=== PATIENT | male | born 1950 | race African-American/Black ===

== ENCOUNTER 2022-01-16 22:15 | Inpatient (IN) | payer OTHER ==
[2022-01-16] MEDS ORDERED: ONDANSETRON 4 MG/2 ML VIAL IVPUSH ONE (22:33)
[2022-01-16 23:13] LABS: BASO % 0.5 % (0-2.0); EOS % 0.3 % (0-4.5); HEMATOCRIT 16.9 % (35.4-49); LYMPH % 11.3 % (8-40); MCH 31.2 pg (25.7-33.7); MCHC 33.9 g/dl (32.0-35.9); MEAN CELL VOLUME 92.1 fl (80-96); MEAN PLT VOLUME 8.7 fl (7.5-11.1); NEUT % 79.9 % (42.8-82.8); PLATELET COUNT 104 10^3/uL (134-434); RBC 1.84 M/mm3 (4.00-5.60); RDW 16.9 % (11.9-15.9); WHITE BLOOD COUNT 3.6 K/mm3 (4.0-10.0)
[2022-01-16 23:18] LABS: INR 1.34 (0.83-1.09); PROTHROMBIN TIME (PATIENT) 15.4 SEC (9.7-13.0)
[2022-01-16 23:20] LABS: ACTIVATED PTT 39.6 SECONDS (25.2-36.5)
[2022-01-16 23:26] LABS: HEMOGLOBIN 5.7 GM/dL (11.7-16.9)
[2022-01-16 23:33] LABS: CHLORIDE 97 mmol/L (98-107); SODIUM 131 mmol/L (136-145)
[2022-01-16 23:36] LABS: ALBUMIN 3.1 g/dl (3.4-5.0); ANION GAP 13 MMOL/L (8-16); CO2 21 mmol/L (21-32); GLUCOSE,RANDOM 174 mg/dL (74-106)
[2022-01-16 23:38] LABS: SGPT/ALT 14 U/L (13-61)
[2022-01-16 23:39] LABS: PHOSPHOROUS 5.7 mg/dL (2.5-4.9); SGOT/AST 22 U/L (15-37)
[2022-01-16 23:40] LABS: BILIRUBIN,TOTAL 0.5 mg/dL (0.2-1); TOT PROT 6.6 g/dl (6.4-8.2)
[2022-01-16 23:41] LABS: ALK PHOS 41 U/L (45-117)
[2022-01-16] MEDS ORDERED: PANTOPRAZOLE SODIUM 80 MG in SODIUM CHLORIDE 100 ML IVPB ONE (23:53)
[2022-01-16 23:56] LABS: BLOOD UREA NITROGEN 154.9 mg/dL (7-18); CREATININE 9.3 mg/dL (0.55-1.3)
[2022-01-17] MEDS ORDERED: PANTOPRAZOLE SODIUM 40 MG VIAL ONE (00:03)
[2022-01-17 00:34] LABS: BASO % 0.4 % (0-2.0); EOS % 0.1 % (0-4.5); HEMATOCRIT 16.5 % (35.4-49); LYMPH % 6.3 % (8-40); MCH 31.1 pg (25.7-33.7); MCHC 33.7 g/dl (32.0-35.9); MEAN CELL VOLUME 92.2 fl (80-96); MEAN PLT VOLUME 8.8 fl (7.5-11.1); MONO % 8.6 % (3.8-10.2); NEUT % 84.6 % (42.8-82.8); PLATELET COUNT 84 10^3/uL (134-434); RBC 1.79 M/mm3 (4.00-5.60); RDW 17.3 % (11.9-15.9); WHITE BLOOD COUNT 3.4 K/mm3 (4.0-10.0)
[2022-01-17 01:01] LABS: HEMOGLOBIN 5.6 GM/dL (11.7-16.9)
[2022-01-17 01:15] LABS: BASO % 0.4 % (0-2.0); EOS % 0.1 % (0-4.5); HEMATOCRIT 17.1 % (35.4-49); LYMPH % 7.5 % (8-40); MCHC 33.7 g/dl (32.0-35.9); MEAN PLT VOLUME 8.9 fl (7.5-11.1); MONO % 9.3 % (3.8-10.2); NEUT % 82.7 % (42.8-82.8); PLATELET COUNT 90 10^3/uL (134-434); RBC 1.86 M/mm3 (4.00-5.60); RDW 16.6 % (11.9-15.9); WHITE BLOOD COUNT 3.5 K/mm3 (4.0-10.0)
[2022-01-17 01:20] LABS: HEMOGLOBIN 5.8 GM/dL (11.7-16.9)
[2022-01-17 06:20] LABS: URINE APPEARANCE CLEAR; URINE BILIRUBIN NEGATIVE (NEGATIVE); URINE COLOR YELLOW; URINE GLUCOSE (UA) NEGATIVE (NEGATIVE); URINE KETONE NEGATIVE (NEGATIVE); URINE LEUK ESTERASE NEGATIVE (NEGATIVE); URINE NITRITE NEGATIVE (NEGATIVE); URINE PROTEIN NEGATIVE (NEGATIVE); URINE UROBILINOGEN 0.2 mg/dL (0.2-1.0)
[2022-01-17 08:56] LABS: BASO % 0.3 % (0-2.0); EOS % 0.1 % (0-4.5); LYMPH % 21.7 % (8-40); MCH 29.6 pg (25.7-33.7); MCHC 33.8 g/dl (32.0-35.9); MEAN CELL VOLUME 87.7 fl (80-96); MEAN PLT VOLUME 8.8 fl (7.5-11.1); MONO % 8.4 % (3.8-10.2); NEUT % 69.5 % (42.8-82.8); PLATELET COUNT 72 10^3/uL (134-434); RBC 2.28 M/mm3 (4.00-5.60); RETICULOCYTES 4.42 % (0.5-1.5); WHITE BLOOD COUNT 3.1 K/mm3 (4.0-10.0)
[2022-01-17 09:03] LABS: HEMOGLOBIN 6.8 GM/dL (11.7-16.9)
[2022-01-17 09:19] LABS: CHLORIDE 100 mmol/L (98-107); SODIUM 136 mmol/L (136-145)
[2022-01-17 09:30] LABS: ALBUMIN 2.9 g/dl (3.4-5.0); ANION GAP 14 MMOL/L (8-16); CO2 21 mmol/L (21-32); GLUCOSE,RANDOM 88 mg/dL (74-106)
[2022-01-17] MEDS: PANTOPRAZOLE SODIUM 80 MG in SODIUM CHLORIDE 100 ML IVPB SCH ×2 (09:30→13:55)
[2022-01-17 09:34] LABS: SGOT/AST 26 U/L (15-37); SGPT/ALT 13 U/L (13-61)
[2022-01-17 09:35] LABS: BILIRUBIN,TOTAL 0.7 mg/dL (0.2-1); TOT PROT 6.2 g/dl (6.4-8.2)
[2022-01-17 09:36] LABS: ALK PHOS 40 U/L (45-117)
[2022-01-17 09:49] LABS: BLOOD UREA NITROGEN 149.1 mg/dL (7-18)
[2022-01-17] MEDS ORDERED: SODIUM CHLORIDE 250 ML IV PRN (10:17)
[2022-01-17 15:36] LABS: HEMATOCRIT 22.5 % (35.4-49); HEMOGLOBIN 7.8 GM/dL (11.7-16.9); MCHC 34.6 g/dl (32.0-35.9); MEAN CELL VOLUME 86.6 fl (80-96); MEAN PLT VOLUME 8.1 fl (7.5-11.1); PLATELET COUNT 75 10^3/uL (134-434); RDW 18.4 % (11.9-15.9); WHITE BLOOD COUNT 3.3 K/mm3 (4.0-10.0)
[2022-01-17] MEDS ORDERED: methaDONE HCL 10 MG TABLET PO ONE (16:11)
[2022-01-17 16:41] LABS: ANISOCYTOSIS 2+; MACROCYTOSIS 2+; TARGET CELLS 1+
[2022-01-17] MEDS ORDERED: methaDONE 40 MG, methaDONE 20 MG PO ONE (16:45)
[2022-01-17 16:54] LABS: TOTAL IRON BINDING CAPACITY 375 ug/dL (250-450)
[2022-01-17] MEDS ORDERED: methaDONE HCL 10 MG TABLET ONE (17:09)
[2022-01-17] MEDS ORDERED: methaDONE HCL 40 MG DISPERSABLE TABLET ONE (17:09)
[2022-01-17 17:11] LABS: IRON SERUM 110 ug/dL (50-175)
[2022-01-17 17:21] LABS: IRON SERUM 78 ug/dL (50-175); TOTAL IRON BINDING CAPACITY 353 ug/dL (250-450)
[2022-01-17] MEDS: PANTOPRAZOLE SODIUM 40 MG VIAL IVPUSH SCH (21:48)
[2022-01-18] MEDS ORDERED: methaDONE HCL 40 MG DISPERSABLE TABLET PO SCH (06:00)
[2022-01-18] MEDS ORDERED: methaDONE 40 MG, methaDONE 20 MG PO ONE (06:30)
[2022-01-18] MEDS ORDERED: methaDONE HCL 40 MG DISPERSABLE TABLET ONE (06:34)
[2022-01-18] MEDS ORDERED: methaDONE HCL 10 MG TABLET ONE (06:34)
[2022-01-18] MEDS: PANTOPRAZOLE SODIUM 40 MG VIAL IVPUSH SCH ×2 (10:05→21:30)
[2022-01-18] MEDS: DOLUTEGRAVIR SODIUM 50 MG TABLET (NON-FORMULARY) PO SCH (13:23)
[2022-01-18 14:25] LABS: HEMOGLOBIN 8.8 GM/dL (11.7-16.9); MCH 29.5 pg (25.7-33.7); MCHC 33.8 g/dl (32.0-35.9); MEAN CELL VOLUME 87.4 fl (80-96); MEAN PLT VOLUME 8.5 fl (7.5-11.1); PLATELET COUNT 94 10^3/uL (134-434); RBC 2.98 M/mm3 (4.00-5.60); RDW 19.2 % (11.9-15.9)
[2022-01-18 14:38] LABS: CHLORIDE 104 mmol/L (98-107); SODIUM 138 mmol/L (136-145)
[2022-01-18 14:40] LABS: ALBUMIN 3.1 g/dl (3.4-5.0); ANION GAP 14 MMOL/L (8-16); CALCIUM 8.4 mg/dL (8.5-10.1); CO2 21 mmol/L (21-32); MAGNESIUM 2.3 mg/dL (1.8-2.4)
[2022-01-18 14:43] LABS: PHOSPHOROUS 7.9 mg/dL (2.5-4.9); SGOT/AST 37 U/L (15-37); SGPT/ALT 15 U/L (13-61)
[2022-01-18 14:45] LABS: TOT PROT 6.7 g/dl (6.4-8.2)
[2022-01-18 14:46] LABS: BILIRUBIN,TOTAL 0.7 mg/dL (0.2-1)
[2022-01-18 14:47] LABS: ALK PHOS 40 U/L (45-117)
[2022-01-18] MEDS ORDERED: IRON SUCROSE INJECTION 200 MG in SODIUM CHLORIDE 90 ML IVPB ONE (15:00)
[2022-01-18 15:02] LABS: CREATININE 9.4 mg/dL (0.55-1.3); GLUCOSE,RANDOM 42 mg/dL (74-106)
[2022-01-18] MEDS ORDERED: DEXTROSE 50%-WATER - 25 GM/50 ML VIAL IVPUSH PRN (15:13)
[2022-01-18] MEDS ORDERED: DEXTROSE 50%-WATER 25 GM/50 ML DISP.SYRIN ONE (15:19)
[2022-01-18] MEDS ORDERED: PROCHLORPERAZINE INJECTION 10 MG/2 ML VIAL IVPB ONE ×2 (18:13→21:45)
[2022-01-18] MEDS ORDERED: ONDANSETRON 4 MG/2 ML VIAL IVPUSH ONE (18:30)
[2022-01-18 23:42] LABS: HEMATOCRIT 25.7 % (35.4-49); HEMOGLOBIN 8.9 GM/dL (11.7-16.9); MCH 29.6 pg (25.7-33.7); MCHC 34.7 g/dl (32.0-35.9); MEAN CELL VOLUME 85.5 fl (80-96); MEAN PLT VOLUME 8.7 fl (7.5-11.1); PLATELET COUNT 100 10^3/uL (134-434); RDW 18.9 % (11.9-15.9); WHITE BLOOD COUNT 3.3 K/mm3 (4.0-10.0)
[2022-01-19] MEDS ORDERED: TRIMETHOBENZAMIDE HCL 300 MG CAPSULE PO ONE ×2 (00:27→00:33)
[2022-01-19] MEDS ORDERED: methaDONE HCL 40 MG DISPERSABLE TABLET ONE (06:43)
[2022-01-19] MEDS ORDERED: methaDONE HCL 10 MG TABLET ONE (06:44)
[2022-01-19] MEDS: methaDONE 40 MG, methaDONE 20 MG PO SCH (06:47)
[2022-01-19 08:41] LABS: HEMATOCRIT 24.8 % (35.4-49); HEMOGLOBIN 8.4 GM/dL (11.7-16.9); MCH 29.7 pg (25.7-33.7); MEAN CELL VOLUME 87.4 fl (80-96); MEAN PLT VOLUME 8.8 fl (7.5-11.1); PLATELET COUNT 95 10^3/uL (134-434); RBC 2.83 M/mm3 (4.00-5.60); RDW 18.9 % (11.9-15.9); WHITE BLOOD COUNT 4.3 K/mm3 (4.0-10.0)
[2022-01-19 09:11] LABS: CALCIUM 8.4 mg/dL (8.5-10.1)
[2022-01-19 09:12] LABS: MAGNESIUM 2.1 mg/dL (1.8-2.4)
[2022-01-19 09:14] LABS: PHOSPHOROUS 4.5 mg/dL (2.5-4.9)
[2022-01-19 09:16] LABS: BILIRUBIN,TOTAL 0.7 mg/dL (0.2-1); BLOOD UREA NITROGEN 88.3 mg/dL (7-18); TOT PROT 6.6 g/dl (6.4-8.2)
[2022-01-19] MEDS: FENOFIBRIC ACID 135 MG CAP PO SCH (09:37)
[2022-01-19] MEDS: DOLUTEGRAVIR SODIUM 50 MG TABLET (NON-FORMULARY) PO SCH (09:37)
[2022-01-19] MEDS: PANTOPRAZOLE SODIUM 40 MG VIAL IVPUSH SCH (09:37)
[2022-01-19] MEDS: ALLOPURINOL 100 MG TABLET (FP) PO SCH (09:37)
[2022-01-19] MEDS: TAMSULOSIN HCL 0.4 MG CAP PO SCH (09:37)
[2022-01-19] MEDS ORDERED: DEXTROSE 5%-0.45% SALINE 1,000 ML IV SCH (11:00)
[2022-01-19] MEDS ORDERED: SODIUM CHLORIDE 250 ML IV PRN (11:02)
[2022-01-19] MEDS: POLYETHYLENE GLYCOL (HEALTHYLAX) 3350 17 GM PACKET PO SCH (21:44)
[2022-01-20] MEDS ORDERED: methaDONE HCL 40 MG DISPERSABLE TABLET ONE (05:12)
[2022-01-20] MEDS ORDERED: methaDONE HCL 10 MG TABLET ONE (05:12)
[2022-01-20] MEDS: methaDONE 40 MG, methaDONE 20 MG PO SCH (05:33)
[2022-01-20 07:54] LABS: BASO % 0.4 % (0-2.0); EOS % 0.8 % (0-4.5); HEMATOCRIT 22.3 % (35.4-49); HEMOGLOBIN 7.5 GM/dL (11.7-16.9); MCHC 33.6 g/dl (32.0-35.9); MEAN CELL VOLUME 89.1 fl (80-96); MEAN PLT VOLUME 8.8 fl (7.5-11.1); MONO % 11.3 % (3.8-10.2); NEUT % 50.5 % (42.8-82.8); PLATELET COUNT 67 10^3/uL (134-434); RDW 19.7 % (11.9-15.9); WHITE BLOOD COUNT 3.2 K/mm3 (4.0-10.0)
[2022-01-20] MEDS ORDERED: EPOETIN ALFA-EPBX 10,000 UNIT/ML VIAL IVPUSH ONE (08:00)
[2022-01-20 08:22] LABS: INR 1.31 (0.83-1.09); PROTHROMBIN TIME (PATIENT) 15.1 SEC (9.7-13.0)
[2022-01-20 08:24] LABS: CALCIUM 7.7 mg/dL (8.5-10.1)
[2022-01-20 08:26] LABS: BLOOD UREA NITROGEN 86.6 mg/dL (7-18)
[2022-01-20 08:28] LABS: CREATININE 6.5 mg/dL (0.55-1.3)
[2022-01-20] MEDS: TAMSULOSIN HCL 0.4 MG CAP PO SCH (10:07)
[2022-01-20] MEDS: ALLOPURINOL 100 MG TABLET (FP) PO SCH (10:07)
[2022-01-20] MEDS: DOLUTEGRAVIR SODIUM 50 MG TABLET (NON-FORMULARY) PO SCH (10:07)
[2022-01-20] MEDS: FENOFIBRIC ACID 135 MG CAP PO SCH (10:07)
[2022-01-20] MEDS: PANTOPRAZOLE 40 MG TABLET PO SCH (10:08)
[2022-01-20] MEDS: POLYETHYLENE GLYCOL (HEALTHYLAX) 3350 17 GM PACKET PO SCH ×2 (10:15→21:34)
[2022-01-20 11:23] LABS: PHOSPHOROUS 5.2 mg/dL (2.5-4.9)
[2022-01-21 08:19] LABS: BASO % 0.5 % (0-2.0); EOS % 0.8 % (0-4.5); HEMATOCRIT 26.7 % (35.4-49); HEMOGLOBIN 9.1 GM/dL (11.7-16.9); LYMPH % 26.1 % (8-40); MCH 30.6 pg (25.7-33.7); MCHC 34.1 g/dl (32.0-35.9); MEAN CELL VOLUME 89.9 fl (80-96); MEAN PLT VOLUME 9.2 fl (7.5-11.1); MONO % 11.1 % (3.8-10.2); NEUT % 61.5 % (42.8-82.8); PLATELET COUNT 59 10^3/uL (134-434); RBC 2.97 M/mm3 (4.00-5.60); RDW 17.7 % (11.9-15.9); WHITE BLOOD COUNT 3.2 K/mm3 (4.0-10.0)
[2022-01-21 08:49] LABS: ALBUMIN 2.6 g/dl (3.4-5.0); CALCIUM 7.6 mg/dL (8.5-10.1); MAGNESIUM 1.7 mg/dL (1.8-2.4)
[2022-01-21 08:50] LABS: CREATININE 4.2 mg/dL (0.55-1.3); PHOSPHOROUS 3.5 mg/dL (2.5-4.9)
[2022-01-21 08:51] LABS: BILIRUBIN,TOTAL 0.9 mg/dL (0.2-1); TOT PROT 5.7 g/dl (6.4-8.2)
[2022-01-21 08:58] LABS: BLOOD UREA NITROGEN 41.4 mg/dL (7-18)
[2022-01-21] MEDS ORDERED: methaDONE HCL 40 MG DISPERSABLE TABLET ONE (09:15)
[2022-01-21] MEDS ORDERED: methaDONE HCL 10 MG TABLET ONE (09:15)
[2022-01-21] MEDS: PANTOPRAZOLE 40 MG TABLET PO SCH (09:28)
[2022-01-21] MEDS: methaDONE 40 MG, methaDONE 20 MG PO SCH (09:29)
[2022-01-21] MEDS: POLYETHYLENE GLYCOL (HEALTHYLAX) 3350 17 GM PACKET PO SCH ×2 (09:29→21:15)
[2022-01-21] MEDS: ALLOPURINOL 100 MG TABLET (FP) PO SCH (09:29)
[2022-01-21] MEDS: TAMSULOSIN HCL 0.4 MG CAP PO SCH (09:29)
[2022-01-21] MEDS: ATOVAQUONE 750 MG/5 ML (UNIT-DOSE PACKAGING) PO SCH (09:30)
[2022-01-21] MEDS: FENOFIBRIC ACID 135 MG CAP PO SCH (09:31)
[2022-01-21] MEDS: DOLUTEGRAVIR SODIUM 50 MG TABLET (NON-FORMULARY) PO SCH (09:32)
[2022-01-21] MEDS ORDERED: methaDONE HCL 40 MG DISPERSABLE TABLET PO SCH (10:00)
[2022-01-21] MEDS ORDERED: MAGNESIUM SULF 50% (8.12 MEQ/2 ML-1 GM VIAL) IVPB ONE (10:45)
[2022-01-22] MEDS: BENZOCAINE/MENTH/CETYLPYRD CL 1 EACH LOZENGE MM PRN ×2 (01:27→10:10)
[2022-01-22] MEDS ORDERED: methaDONE HCL 40 MG DISPERSABLE TABLET ONE (05:53)
[2022-01-22] MEDS ORDERED: methaDONE HCL 10 MG TABLET ONE (05:53)
[2022-01-22] MEDS: methaDONE 40 MG, methaDONE 20 MG PO SCH (06:04)
[2022-01-22 08:18] LABS: BASO % 0.2 % (0-2.0); EOS % 0.7 % (0-4.5); HEMATOCRIT 28.9 % (35.4-49); HEMOGLOBIN 9.7 GM/dL (11.7-16.9); LYMPH % 16.1 % (8-40); MCH 30.2 pg (25.7-33.7); MCHC 33.4 g/dl (32.0-35.9); MEAN CELL VOLUME 90.5 fl (80-96); MEAN PLT VOLUME 9.2 fl (7.5-11.1); MONO % 8.2 % (3.8-10.2); NEUT % 74.8 % (42.8-82.8); PLATELET COUNT 64 10^3/uL (134-434); RDW 17.9 % (11.9-15.9); WHITE BLOOD COUNT 4.1 K/mm3 (4.0-10.0)
[2022-01-22 08:57] LABS: ALBUMIN 2.6 g/dl (3.4-5.0); BLOOD UREA NITROGEN 45.5 mg/dL (7-18); MAGNESIUM 1.8 mg/dL (1.8-2.4)
[2022-01-22 08:59] LABS: CREATININE 5.1 mg/dL (0.55-1.3); PHOSPHOROUS 3.6 mg/dL (2.5-4.9)
[2022-01-22 09:00] LABS: BILIRUBIN,TOTAL 1.5 mg/dL (0.2-1)
[2022-01-22 09:01] LABS: TOT PROT 5.9 g/dl (6.4-8.2)
[2022-01-22] MEDS: POLYETHYLENE GLYCOL (HEALTHYLAX) 3350 17 GM PACKET PO SCH ×2 (09:57→22:46)
[2022-01-22] MEDS: DOLUTEGRAVIR SODIUM 50 MG TABLET (NON-FORMULARY) PO SCH (11:58)
[2022-01-22] MEDS: ATOVAQUONE 750 MG/5 ML (UNIT-DOSE PACKAGING) PO SCH (11:58)
[2022-01-22] MEDS: PANTOPRAZOLE 40 MG TABLET PO SCH (11:58)
[2022-01-22] MEDS: TAMSULOSIN HCL 0.4 MG CAP PO SCH (11:58)
[2022-01-22] MEDS: ALLOPURINOL 100 MG TABLET (FP) PO SCH (11:59)
[2022-01-22] MEDS ORDERED: AMINO ACIDS 4.25%/D5W 1,000 ML IV SCH (12:45)
[2022-01-22] MEDS ORDERED: morphine SULFATE 4 MG/ML VIAL IVPUSH ONE (14:27)
[2022-01-22] MEDS ORDERED: ACETAMINOPHEN 1000 MG/100 ML BAG IVPB ONE (14:35)
[2022-01-22] MEDS ORDERED: PROCHLORPERAZINE INJECTION 10 MG/2 ML VIAL IVPB ONE (15:16)
[2022-01-22] MEDS ORDERED: SODIUM CHLORIDE 250 ML IV PRN (15:24)
[2022-01-22] MEDS ORDERED: DORAVIRINE 100 MG PO SCH (16:00)
[2022-01-22] MEDS ORDERED: ACETAMINOPHEN 1000 MG/100 ML BAG IVPB PRN (19:07)
[2022-01-22] MEDS ORDERED: BENZOCAINE/MENTH/CETYLPYRD CL 1 EACH LOZENGE MM PRN (20:49)
[2022-01-22] MEDS ORDERED: FAT EMULSION/OLIVE/SOY/PHOSPHO 250 ML IV SCH ×2 (22:00)
[2022-01-22] MEDS ORDERED: FAT EMULSION/OLIVE/SOY (CLINOLIPID) 250 ML EMULSION IV SCH (22:00)
[2022-01-23] MEDS ORDERED: methaDONE HCL 10 MG TABLET ONE (05:53)
[2022-01-23] MEDS ORDERED: methaDONE HCL 40 MG DISPERSABLE TABLET ONE (05:53)
[2022-01-23] MEDS ORDERED: methaDONE 40 MG, methaDONE 20 MG PO SCH (06:00)
[2022-01-23] MEDS ORDERED: ATOVAQUONE 750 MG/5 ML (UNIT-DOSE PACKAGING) PO SCH (08:00)
[2022-01-23] MEDS ORDERED: TAMSULOSIN HCL 0.4 MG CAP PO SCH (08:30)
[2022-01-23] MEDS: POLYETHYLENE GLYCOL (HEALTHYLAX) 3350 17 GM PACKET PO SCH (09:41)
[2022-01-23] MEDS: PANTOPRAZOLE SODIUM 40 MG VIAL IVPUSH SCH ×2 (09:43→13:25)
[2022-01-23] MEDS ORDERED: EPOETIN ALFA-EPBX 10,000 UNIT/ML VIAL IVPUSH ONE (10:00)
[2022-01-23] MEDS ORDERED: ALLOPURINOL 100 MG TABLET (FP) PO SCH (10:00)
[2022-01-23] MEDS ORDERED: DOLUTEGRAVIR SODIUM 50 MG TABLET (NON-FORMULARY) PO SCH (10:00)
[2022-01-23] MEDS ORDERED: DORAVIRINE 100 MG PO SCH (10:00)
[2022-01-23] MEDS ORDERED: MAGNESIUM SULF 50% (8.12 MEQ/2 ML-1 GM VIAL) IVPB ONE (10:17)
[2022-01-23 10:51] LABS: HEMATOCRIT 26.7 % (35.4-49); HEMOGLOBIN 9.1 GM/dL (11.7-16.9); MCH 30.7 pg (25.7-33.7); MCHC 34.1 g/dl (32.0-35.9); MEAN PLT VOLUME 8.2 fl (7.5-11.1); PLATELET COUNT 68 10^3/uL (134-434); RBC 2.96 M/mm3 (4.00-5.60); RDW 17.5 % (11.9-15.9); WHITE BLOOD COUNT 3.8 K/mm3 (4.0-10.0)
[2022-01-23 11:13] LABS: BLOOD UREA NITROGEN 60.7 mg/dL (7-18); CALCIUM 7.6 mg/dL (8.5-10.1)
[2022-01-23 11:14] LABS: ALBUMIN 2.4 g/dl (3.4-5.0)
[2022-01-23 11:16] LABS: PHOSPHOROUS 4.1 mg/dL (2.5-4.9)
[2022-01-23 11:17] LABS: CREATININE 5.9 mg/dL (0.55-1.3)
[2022-01-23 11:18] LABS: BILIRUBIN,TOTAL 0.8 mg/dL (0.2-1); TOT PROT 5.6 g/dl (6.4-8.2)
[2022-01-23] MEDS: AMINO ACIDS 4.25%/D5W 1,000 ML IV SCH ×2 (13:41→18:10)
[2022-01-23 21:24] VITALS: BMI 15.0
[2022-01-23 21:49] VITALS: BP 125/82; PULSE 69; TEMP 98.2
[2022-01-24 00:07] LABS: SARS-CoV-2 NAA Not Detected (Not Detected)
== END 2022-01-23 23:17 | disposition short-term general hospital (02) | DRG 682 ==
LOC: JER 22:15 → JERBED 01-17 02:09 → J4W 01-17 06:41 → J5S 01-22 20:47
PROVIDERS: ADMIT Hospitalist; ATTEND Internal Medicine
PROC: 30233N1 Transfusion of Nonautologous Red Blood Cells into Peripheral Vein, Percutaneous Approach (ICD-10-PCS; 2022-01-17)
PROC: 05HN33Z Insertion of Infusion Device into Left Internal Jugular Vein, Percutaneous Approach (ICD-10-PCS; principal; 2022-01-19)
PROC: B544ZZA Ultrasonography of Left Jugular Veins, Guidance (ICD-10-PCS; 2022-01-19)
PROC: 5A1D70Z Performance of Urinary Filtration, Intermittent, Less than 6 Hours Per Day (ICD-10-PCS; 2022-01-20)
PROC: 0DJ08ZZ Inspection of Upper Intestinal Tract, Via Natural or Artificial Opening Endoscopic (ICD-10-PCS; 2022-01-21)
PROC: 5A1D70Z Performance of Urinary Filtration, Intermittent, Less than 6 Hours Per Day (ICD-10-PCS; 2022-01-21)
PROC: 5A1D70Z Performance of Urinary Filtration, Intermittent, Less than 6 Hours Per Day (ICD-10-PCS; 2022-01-23)
DX: I12.0 Hypertensive chronic kidney disease with stage 5 chronic kidney disease or end stage renal disease (principal); N18.6 End stage renal disease; N17.9 Acute kidney failure, unspecified; D61.818 Other pancytopenia; K92.2 Gastrointestinal hemorrhage, unspecified; F11.20 Opioid dependence, uncomplicated; R64 Cachexia; Z68.1 Body mass index [BMI] 19.9 or less, adult; E87.1 Hypo-osmolality and hyponatremia; E78.5 Hyperlipidemia, unspecified; D64.9 Anemia, unspecified; Z21 Asymptomatic human immunodeficiency virus [HIV] infection status; D50.9 Iron deficiency anemia, unspecified; N40.0 Benign prostatic hyperplasia without lower urinary tract symptoms; F19.10 Other psychoactive substance abuse, uncomplicated; I44.69 Other fascicular block; D69.6 Thrombocytopenia, unspecified; R13.19 Other dysphagia; R19.5 Other fecal abnormalities; B19.20 Unspecified viral hepatitis C without hepatic coma; M10.9 Gout, unspecified; K22.2 Esophageal obstruction; E83.39 Other disorders of phosphorus metabolism; Z85.89 Personal history of malignant neoplasm of other organs and systems; Z96.643 Presence of artificial hip joint, bilateral; Z99.2 Dependence on renal dialysis
CPT/HCPCS: 36415; 36430; 71045-TC-FY; 74018-TC-FY; 74220-TC-FY; 76700-TC; 80048; 80053; 81003; 82105; 82272; 82607; 82728; 82746; 82962; 83010; 83036; 83540; 83550; 83605; 83615; 83735; 84100; 84443; 84484; 85025; 85027; 85045; 85610; 85730; 86359; 86360; 86704; 86803; 86850; 86880; 86900; 86901; 86922; 87340; 87517; 87522; 87804; 93005; 93010; 99285-25; C9803-CS; J1756; P9058; Q5106; U0003; U0005

== ENCOUNTER 2022-05-20 16:03 | Observation (INO) | payer OTHER ==
[2022-05-20 16:34] VITALS: TEMP 97.7; BMI 23.4
[2022-05-20 17:48] LABS: BASO % 0.4 % (0-2.0); EOS % 0.3 % (0-4.5); HEMATOCRIT 23.9 % (35.4-49); HEMOGLOBIN 8.1 GM/dL (11.7-16.9); LYMPH % 15.2 % (8-40); MCH 32.3 pg (25.7-33.7); MEAN PLT VOLUME 8.7 fl (7.5-11.1); MONO % 5.7 % (3.8-10.2); NEUT % 78.4 % (42.8-82.8); PLATELET COUNT 123 10^3/uL (134-434); RBC 2.51 M/mm3 (4.00-5.60); RDW 17.2 % (11.9-15.9); WHITE BLOOD COUNT 3.7 K/mm3 (4.0-10.0)
[2022-05-20 18:11] LABS: ALBUMIN 2.5 g/dl (3.4-5.0); BLOOD UREA NITROGEN 12.7 mg/dL (7-18); CALCIUM 7.9 mg/dL (8.5-10.1)
[2022-05-20 18:13] LABS: PHOSPHOROUS 2.4 mg/dL (2.5-4.9)
[2022-05-20 18:16] LABS: BILIRUBIN,TOTAL 0.6 mg/dL (0.2-1); TOT PROT 7.1 g/dl (6.4-8.2)
[2022-05-21] MEDS ORDERED: ONDANSETRON 4 MG/2 ML VIAL IVPUSH ONE (00:42)
[2022-05-21] MEDS ORDERED: ONDANSETRON 4 MG/2 ML VIAL ONE (00:43)
[2022-05-21 03:24] VITALS: BP 104/56; PULSE 70; RESP 18
[2022-05-21] MEDS ORDERED: HEPARIN NA (PORCINE) 5,000 UNITS/ML 1ML VIAL SQ SCH (06:00)
[2022-05-21] MEDS ORDERED: TRIMETHOBENZAMIDE HCL 200MG/2ML INJ IM ONE (06:10)
[2022-05-21] MEDS ORDERED: DOLUTEGRAVIR SODIUM 50 MG TABLET (NON-FORMULARY) PO SCH (10:00)
[2022-05-21] MEDS ORDERED: PATIENT'S OWN MEDICATION (NON-FORMULARY) (Doravirine [Pifeltro] 100 MG Tablet) PO SCH (10:00)
== END 2022-05-21 08:50 | disposition left against medical advice (07) ==
LOC: JER 16:03 → JERBED 19:45
PROVIDERS: ADMIT Internal Medicine; ATTEND Internal Medicine
PROC: 3E023GC Introduction of Other Therapeutic Substance into Muscle, Percutaneous Approach (ICD-10-PCS; principal; 2022-05-20)
PROC: 3E033GC Introduction of Other Therapeutic Substance into Peripheral Vein, Percutaneous Approach (ICD-10-PCS; 2022-05-20)
DX: R55 Syncope and collapse (principal); R53.1 Weakness; Z85.819 Personal history of malignant neoplasm of unspecified site of lip, oral cavity, and pharynx; N18.6 End stage renal disease; D64.9 Anemia, unspecified; E78.5 Hyperlipidemia, unspecified; B20 Human immunodeficiency virus [HIV] disease; R06.02 Shortness of breath; Z99.2 Dependence on renal dialysis; Z29.8 Encounter for other specified prophylactic measures
CPT/HCPCS: 0241U-QW; 36415; 71045-TC-FY; 76937; 80053; 83735; 84100; 84484; 85025; 86850; 86900; 86901; 93005; 93010; 96372; 96374; 99285-25; G0378; J1644

== ENCOUNTER 2022-10-26 15:56 | Inpatient (IN) | payer OTHER ==
[2022-10-26] MEDS ORDERED: SODIUM CHLORIDE 500 ML IV STA (16:12)
[2022-10-26] MEDS ORDERED: ONDANSETRON 4 MG/2 ML VIAL ONE ×2 (16:22→19:49)
[2022-10-26] MEDS ORDERED: ONDANSETRON 4 MG/2 ML VIAL IVPUSH ONE ×2 (16:22→20:12)
[2022-10-26 16:25] LABS: VENOUS BASE EXCESS 0.1 mmol/L (-2-2); VENOUS O2 SATURATION 51.5 % (70-80); VENOUS PCO2 40.1 mmHg (38-52); VENOUS PH 7.408 (7.310-7.410)
[2022-10-26 16:37] LABS: BASO % 0.3 % (0-2.0); EOS % 0.4 % (0-4.5); HEMATOCRIT 36.4 % (35.4-49); HEMOGLOBIN 12.1 GM/dL (11.7-16.9); LYMPH % 40.5 % (8-40); MCHC 33.2 g/dl (32.0-35.9); MEAN CELL VOLUME 90.6 fl (80-96); MEAN PLT VOLUME 8.9 fl (7.5-11.1); MONO % 12.9 % (3.8-10.2); NEUT % 45.9 % (42.8-82.8); PLATELET COUNT 102 10^3/uL (134-434); RBC 4.02 M/mm3 (4.00-5.60); RDW 20.1 % (11.9-15.9); WHITE BLOOD COUNT 4.1 K/mm3 (4.0-10.0)
[2022-10-26 16:44] LABS: INR 1.31 (0.83-1.09); PROTHROMBIN TIME (PATIENT) 15.2 SEC (9.7-13.0)
[2022-10-26 16:47] LABS: ACTIVATED PTT 56.2 SECONDS (25.2-36.5)
[2022-10-26 16:55] LABS: BLOOD UREA NITROGEN 26.3 mg/dL (7-18); CALCIUM 8.8 mg/dL (8.5-10.1); MAGNESIUM 2.1 mg/dL (1.8-2.4)
[2022-10-26 16:56] LABS: ALBUMIN 3.3 g/dl (3.4-5.0)
[2022-10-26 16:58] LABS: PHOSPHOROUS 2.6 mg/dL (2.5-4.9)
[2022-10-26 17:00] LABS: BILIRUBIN,TOTAL 0.7 mg/dL (0.2-1); TOT PROT 8.3 g/dl (6.4-8.2)
[2022-10-26 17:03] LABS: CREATININE 5.1 mg/dL (0.55-1.3); LACTIC ACID 3.3 mmol/L (0.4-2.0)
[2022-10-26] MEDS ORDERED: morphine CARPU-JECT 4 MG/1 ML DISP.SYRIN IVPUSH ONE ×3 (17:04→20:11)
[2022-10-26] MEDS ORDERED: morphine SULFATE 4 MG/ML VIAL ONE ×2 (18:03→19:41)
[2022-10-26 20:07] LABS: LACTIC ACID 4.3 mmol/L (0.4-2.0)
[2022-10-26 21:40] LABS: EPI CELLS 2 /uL (0-25.1); HYALINE CASTS 0 /uL (0-3.1); PH,URINE 8.5 (5.0-8.0); URINE APPEARANCE CLEAR; URINE BACTERIA 18 /uL (0-1359); URINE BILIRUBIN NEGATIVE (NEGATIVE); URINE COLOR YELLOW; URINE GLUCOSE (UA) NEGATIVE (NEGATIVE); URINE KETONE NEGATIVE (NEGATIVE); URINE LEUK ESTERASE NEGATIVE (NEGATIVE); URINE NITRITE NEGATIVE (NEGATIVE); URINE PROTEIN 1+ (NEGATIVE); URINE RBC 1969 /uL (0-23.9); URINE UROBILINOGEN 0.2 mg/dL (0.2-1.0); URINE WBC 6 /uL (0-25.8)
[2022-10-26] MEDS ORDERED: ACETAMINOPHEN 1000 MG/100 ML BAG IVPB ONE (22:07)
[2022-10-26] MEDS ORDERED: ACETAMINOPHEN INJECTION 100 ML IVPB ONE (22:23)
[2022-10-27] MEDS ORDERED: HYDROmorphone HCl 2 MG/ML VIAL IVPUSH PRN (01:45)
[2022-10-27] MEDS ORDERED: methaDONE HCL 10 MG TABLET PO ONE (03:46)
[2022-10-27] MEDS ORDERED: methaDONE HCL 40 MG DISPERSABLE TABLET ONE (04:03)
[2022-10-27] MEDS ORDERED: methaDONE HCL 10 MG TABLET ONE (04:04)
[2022-10-27] MEDS ORDERED: ACETAMINOPHEN 1000 MG/100 ML BAG IVPB PRN (04:30)
[2022-10-27 06:32] LABS: HEMATOCRIT 28.4 % (35.4-49); HEMOGLOBIN 9.5 GM/dL (11.7-16.9); MCH 30.8 pg (25.7-33.7); MCHC 33.4 g/dl (32.0-35.9); MEAN CELL VOLUME 92.3 fl (80-96); MEAN PLT VOLUME 8.5 fl (7.5-11.1); PLATELET COUNT 70 10^3/uL (134-434); RBC 3.08 M/mm3 (4.00-5.60); RDW 19.8 % (11.9-15.9); WHITE BLOOD COUNT 2.4 K/mm3 (4.0-10.0)
[2022-10-27 06:53] LABS: CALCIUM 8.1 mg/dL (8.5-10.1)
[2022-10-27 06:54] LABS: MAGNESIUM 1.9 mg/dL (1.8-2.4)
[2022-10-27 06:57] LABS: CREATININE 6.6 mg/dL (0.55-1.3)
[2022-10-27 06:58] LABS: BILIRUBIN,TOTAL 0.6 mg/dL (0.2-1); TOT PROT 6.7 g/dl (6.4-8.2)
[2022-10-27 07:00] LABS: ALBUMIN 2.6 g/dl (3.4-5.0)
[2022-10-27] MEDS ORDERED: CALCIUM ACETATE 667 MG CAPSULE (FP) PO SCH (08:00)
[2022-10-27] MEDS ORDERED: amLODIPine BESYLATE 10 MG TABLET (FP) ONE (08:57)
[2022-10-27] MEDS: ALLOPURINOL 100 MG TABLET (FP) PO SCH (10:00)
[2022-10-27] MEDS: amLODIPine BESYLATE 10 MG TABLET (FP) PO SCH (10:00)
[2022-10-27] MEDS: DOLUTEGRAVIR SODIUM 50 MG TABLET (NON-FORMULARY) PO SCH (10:00)
[2022-10-27] MEDS ORDERED: TAMSULOSIN HCL 0.4 MG CAP ONE (10:24)
[2022-10-27] MEDS: TAMSULOSIN HCL 0.4 MG CAP PO SCH (10:27)
[2022-10-27] MEDS: FENOFIBRIC ACID 135 MG CAP PO SCH (11:14)
[2022-10-27] MEDS ORDERED: SODIUM CHLORIDE 250 ML IV PRN (14:02)
[2022-10-28] MEDS ORDERED: methaDONE HCL 10 MG TABLET PO SCH (04:00)
[2022-10-28] MEDS ORDERED: methaDONE 40 MG, methaDONE 20 MG PO SCH (04:00)
[2022-10-28] MEDS: TAMSULOSIN HCL 0.4 MG CAP PO SCH (07:53)
[2022-10-28 09:14] LABS: HEMATOCRIT 30.4 % (35.4-49); HEMOGLOBIN 10.3 GM/dL (11.7-16.9); MCH 30.8 pg (25.7-33.7); MCHC 33.7 g/dl (32.0-35.9); MEAN CELL VOLUME 91.4 fl (80-96); MEAN PLT VOLUME 8.8 fl (7.5-11.1); PLATELET COUNT 78 10^3/uL (134-434); RBC 3.33 M/mm3 (4.00-5.60); RDW 19.9 % (11.9-15.9); WHITE BLOOD COUNT 2.4 K/mm3 (4.0-10.0)
[2022-10-28 09:30] LABS: CHLORIDE 102 mmol/L (98-107); SODIUM 134 mmol/L (136-145)
[2022-10-28] MEDS ORDERED: EPOETIN ALFA-EPBX 10,000 UNIT/ML VIAL IVPUSH ONE (09:30)
[2022-10-28 09:43] LABS: CALCIUM 7.6 mg/dL (8.5-10.1)
[2022-10-28 09:44] LABS: ALBUMIN 2.7 g/dl (3.4-5.0); ANION GAP 9 MMOL/L (8-16); BLOOD UREA NITROGEN 56.3 mg/dL (7-18); CO2 24 mmol/L (21-32); GLUCOSE,RANDOM 133 mg/dL (74-106)
[2022-10-28 09:47] LABS: SGOT/AST 30 U/L (15-37); SGPT/ALT 12 U/L (13-61)
[2022-10-28 09:48] LABS: TOT PROT 6.9 g/dl (6.4-8.2)
[2022-10-28 09:49] LABS: BILIRUBIN,TOTAL 0.6 mg/dL (0.2-1)
[2022-10-28 09:50] LABS: ALK PHOS 89 U/L (45-117)
[2022-10-28 09:54] LABS: CREATININE 8.6 mg/dL (0.55-1.3)
[2022-10-28] MEDS ORDERED: methaDONE HCL 40 MG DISPERSABLE TABLET PO SCH (10:00)
[2022-10-28] MEDS ORDERED: SODIUM CHLORIDE 250 ML IV PRN (12:13)
[2022-10-28] MEDS: PATIENT'S OWN MEDICATION (NON-FORMULARY) (Doravirine [Pifeltro] 100 MG Tablet) PO SCH ×2 (12:49→12:50)
[2022-10-28] MEDS: amLODIPine BESYLATE 10 MG TABLET (FP) PO SCH (12:50)
[2022-10-28] MEDS: DOLUTEGRAVIR SODIUM 50 MG TABLET (NON-FORMULARY) PO SCH (12:51)
[2022-10-28] MEDS: ALLOPURINOL 100 MG TABLET (FP) PO SCH (12:51)
[2022-10-28] MEDS: FENOFIBRIC ACID 135 MG CAP PO SCH (12:51)
[2022-10-28] MEDS ORDERED: ACETAMINOPHEN 1000 MG/100 ML BAG IVPB PRN (14:11)
[2022-10-28] MEDS ORDERED: CALCIUM ACETATE 667 MG CAPSULE (FP) PO SCH (17:30)
[2022-10-29] MEDS: methaDONE 40 MG, methaDONE 20 MG PO SCH (05:36)
[2022-10-29] MEDS ORDERED: DORAVIRINE 100 MG PO SCH (10:00)
[2022-10-29] MEDS: amLODIPine BESYLATE 10 MG TABLET (FP) PO SCH (10:13)
[2022-10-29] MEDS: VITAMIN B COMP W-C 1 EA TABLET (NEPHRO-VITE) PO SCH (10:13)
[2022-10-29] MEDS: ALLOPURINOL 100 MG TABLET (FP) PO SCH (10:14)
[2022-10-29] MEDS: TAMSULOSIN HCL 0.4 MG CAP PO SCH (10:14)
[2022-10-29] MEDS: FENOFIBRIC ACID 135 MG CAP PO SCH (10:14)
[2022-10-29] MEDS: DOLUTEGRAVIR SODIUM 50 MG TABLET (NON-FORMULARY) PO SCH (10:15)
[2022-10-29 13:41] VITALS: BMI 19.8
[2022-10-29 14:31] LABS: BASO % 0.5 % (0-2.0); EOS % 2.2 % (0-4.5); HEMATOCRIT 32.4 % (35.4-49); LYMPH % 39.3 % (8-40); MCHC 33.8 g/dl (32.0-35.9); MEAN CELL VOLUME 91.5 fl (80-96); MEAN PLT VOLUME 8.7 fl (7.5-11.1); MONO % 16.6 % (3.8-10.2); NEUT % 41.4 % (42.8-82.8); PLATELET COUNT 80 10^3/uL (134-434); RBC 3.54 M/mm3 (4.00-5.60); RDW 19.8 % (11.9-15.9); WHITE BLOOD COUNT 2.7 K/mm3 (4.0-10.0)
[2022-10-29 14:45] LABS: CHLORIDE 98 mmol/L (98-107); SODIUM 137 mmol/L (136-145)
[2022-10-29 14:48] LABS: BLOOD UREA NITROGEN 42.5 mg/dL (7-18); CALCIUM 8.2 mg/dL (8.5-10.1); GLUCOSE,RANDOM 106 mg/dL (74-106)
[2022-10-29 14:49] LABS: ALBUMIN 2.8 g/dl (3.4-5.0); ANION GAP 6 MMOL/L (8-16); CO2 33 mmol/L (21-32)
[2022-10-29 14:51] LABS: SGOT/AST 33 U/L (15-37); SGPT/ALT 16 U/L (13-61)
[2022-10-29 14:53] LABS: ALK PHOS 90 U/L (45-117); BILIRUBIN,TOTAL 0.6 mg/dL (0.2-1); TOT PROT 7.4 g/dl (6.4-8.2)
[2022-10-29 15:06] LABS: CREATININE 7.5 mg/dL (0.55-1.3)
[2022-10-29] MEDS ORDERED: SODIUM ZIRCONIUM CYCLOSILICATE (LOKELMA) 5 GM PACKET PO SCH (15:15)
[2022-10-30] MEDS: methaDONE 40 MG, methaDONE 20 MG PO SCH (05:25)
[2022-10-30 08:46] LABS: HEMOGLOBIN 10.8 GM/dL (11.7-16.9); MCH 30.7 pg (25.7-33.7); MCHC 33.6 g/dl (32.0-35.9); MEAN CELL VOLUME 91.3 fl (80-96); MEAN PLT VOLUME 8.8 fl (7.5-11.1); PLATELET COUNT 81 10^3/uL (134-434); WHITE BLOOD COUNT 2.9 K/mm3 (4.0-10.0)
[2022-10-30 08:56] LABS: CHLORIDE 97 mmol/L (98-107); SODIUM 135 mmol/L (136-145)
[2022-10-30 08:58] LABS: ALBUMIN 2.6 g/dl (3.4-5.0)
[2022-10-30 08:59] LABS: ANION GAP 7 MMOL/L (8-16); BLOOD UREA NITROGEN 62.1 mg/dL (7-18); CO2 31 mmol/L (21-32); GLUCOSE,RANDOM 69 mg/dL (74-106); MAGNESIUM 1.7 mg/dL (1.8-2.4)
[2022-10-30 09:01] LABS: PHOSPHOROUS 4.9 mg/dL (2.5-4.9); SGPT/ALT 14 U/L (13-61)
[2022-10-30 09:03] LABS: BILIRUBIN,TOTAL 0.6 mg/dL (0.2-1); TOT PROT 6.8 g/dl (6.4-8.2)
[2022-10-30 09:04] LABS: ALK PHOS 82 U/L (45-117)
[2022-10-30 09:06] LABS: CREATININE 9.2 mg/dL (0.55-1.3); SGOT/AST 25 U/L (15-37)
[2022-10-30] MEDS: FENOFIBRIC ACID 135 MG CAP PO SCH (11:30)
[2022-10-30] MEDS: VITAMIN B COMP W-C 1 EA TABLET (NEPHRO-VITE) PO SCH (11:30)
[2022-10-30] MEDS: DOLUTEGRAVIR SODIUM 50 MG TABLET (NON-FORMULARY) PO SCH (11:31)
[2022-10-30] MEDS: ALLOPURINOL 100 MG TABLET (FP) PO SCH (11:31)
[2022-10-30] MEDS: TAMSULOSIN HCL 0.4 MG CAP PO SCH (11:31)
[2022-10-30] MEDS: amLODIPine BESYLATE 10 MG TABLET (FP) PO SCH (13:44)
[2022-10-30 15:04] VITALS: PULSE 80; RESP 18
[2022-10-30] MEDS ORDERED: SODIUM CHLORIDE 250 ML IV PRN (15:10)
[2022-10-30] MEDS ORDERED: EPOETIN ALFA-EPBX 4,000 UNIT/ML VIAL IVPUSH ONE (15:15)
[2022-10-30 17:21] VITALS: BP 135/74; TEMP 98.6
== END 2022-10-30 18:26 | disposition home or self-care (01) | DRG 693 ==
LOC: JER 15:56 → JERBED 23:33 → J4W 10-27 10:36 → J5S 10-28 11:42
PROVIDERS: ADMIT Internal Medicine; ATTEND Internal Medicine
PROC: 5A1D70Z Performance of Urinary Filtration, Intermittent, Less than 6 Hours Per Day (ICD-10-PCS; principal; 2022-10-30)
DX: N23 Unspecified renal colic (principal); N18.6 End stage renal disease; B20 Human immunodeficiency virus [HIV] disease; E87.20 Acidosis, unspecified; I12.0 Hypertensive chronic kidney disease with stage 5 chronic kidney disease or end stage renal disease; F11.20 Opioid dependence, uncomplicated; N20.0 Calculus of kidney; K83.8 Other specified diseases of biliary tract; B19.20 Unspecified viral hepatitis C without hepatic coma; D69.6 Thrombocytopenia, unspecified; E78.5 Hyperlipidemia, unspecified; R31.0 Gross hematuria; E87.5 Hyperkalemia; Z99.2 Dependence on renal dialysis
CPT/HCPCS: 0241U-QW; 36415; 70450-TC; 71045-TC-FY; 71275-TC; 74174-TC; 74176-TC; 80048; 80053; 81003; 82550; 82803; 83605; 83690; 83735; 84100; 84439; 84443; 84484; 85025; 85027; 85610; 85730; 86359; 86360; 86803; 86850; 86900; 86901; 87040; 87086; 87186; 87340; 87522; 93005; 93010; 99291; Q5106; Q9967

== ENCOUNTER 2023-02-01 09:38 | Observation (INO) | payer OTHER ==
[2023-02-01 09:54] VITALS: BMI 18.7
[2023-02-01] MEDS ORDERED: FAMOTIDINE 20 MG/50 ML IVPB 20 MG/50 ML MG IVPB ONE ×2 (10:01→10:25)
[2023-02-01] MEDS ORDERED: ONDANSETRON 4 MG/2 ML VIAL IVPUSH ONE (10:01)
[2023-02-01] MEDS ORDERED: ACETAMINOPHEN 1000 MG/100 ML BAG IVPB ONE (10:01)
[2023-02-01] MEDS ORDERED: ONDANSETRON 4 MG/2 ML VIAL ONE (10:24)
[2023-02-01] MEDS ORDERED: ACETAMINOPHEN INJECTION 100 ML IVPB ONE (10:24)
[2023-02-01 10:33] LABS: BASO % 0.4 % (0-2.0); EOS % 1.2 % (0-4.5); HEMATOCRIT 29.3 % (35.4-49); LYMPH % 19.7 % (8-40); MCH 31.3 pg (25.7-33.7); MEAN CELL VOLUME 91.8 fl (80-96); MEAN PLT VOLUME 9.4 fl (7.5-11.1); MONO % 13.6 % (3.8-10.2); NEUT % 65.1 % (42.8-82.8); PLATELET COUNT 94 10^3/uL (134-434); WHITE BLOOD COUNT 2.2 K/mm3 (4.0-10.0)
[2023-02-01 10:38] LABS: INR 1.44 (0.83-1.09); PROTHROMBIN TIME (PATIENT) 16.7 SEC (9.7-13.0)
[2023-02-01 10:41] LABS: ACTIVATED PTT 51.2 SECONDS (25.2-36.5)
[2023-02-01 10:50] LABS: CHLORIDE 95 mmol/L (98-107); POTASSIUM 4.3 mmol/L (3.5-5.1); SODIUM 132 mmol/L (136-145)
[2023-02-01 10:52] LABS: CALCIUM 7.8 mg/dL (8.5-10.1)
[2023-02-01 10:53] LABS: ALBUMIN 2.8 g/dl (3.4-5.0); ANION GAP 12 MMOL/L (8-16); BLOOD UREA NITROGEN 66.1 mg/dL (7-18); CO2 26 mmol/L (21-32); GLUCOSE,RANDOM 102 mg/dL (74-106); LIPASE 298 U/L (73-393); MAGNESIUM 1.8 mg/dL (1.8-2.4)
[2023-02-01 10:55] LABS: PHOSPHOROUS 4.7 mg/dL (2.5-4.9); SGOT/AST 22 U/L (15-37); SGPT/ALT 11 U/L (13-61)
[2023-02-01 10:57] LABS: BILIRUBIN,TOTAL 0.5 mg/dL (0.2-1); TOT PROT 7.2 g/dl (6.4-8.2)
[2023-02-01 10:58] LABS: ALK PHOS 73 U/L (45-117)
[2023-02-01 10:59] LABS: CREATININE 11.6 mg/dL (0.55-1.3)
[2023-02-01] MEDS ORDERED: methaDONE HCL 10 MG TABLET PO ONE (11:23)
[2023-02-01] MEDS ORDERED: methaDONE HCL 10 MG TABLET ONE (11:31)
[2023-02-01] MEDS ORDERED: SODIUM CHLORIDE 250 ML IV STA (11:33)
[2023-02-01] MEDS ORDERED: SODIUM CHLORIDE 250 ML IV PRN (12:45)
[2023-02-01] MEDS: CALCIUM ACETATE 667 MG CAPSULE (FP) PO SCH ×2 (15:28→21:44)
[2023-02-01] MEDS: HEPARIN NA (PORCINE) 5,000 UNITS/ML 1ML VIAL SQ SCH (21:44)
[2023-02-02] MEDS: CALCIUM ACETATE 667 MG CAPSULE (FP) PO SCH (06:55)
[2023-02-02] MEDS ORDERED: methaDONE 40 MG, methaDONE 20 MG PO SCH (07:45)
[2023-02-02] MEDS ORDERED: EPOETIN ALFA-EPBX 4,000 UNIT/ML VIAL IVPUSH ONE (08:00)
[2023-02-02 08:09] LABS: HEMATOCRIT 25.7 % (35.4-49); HEMOGLOBIN 8.8 GM/dL (11.7-16.9); MCH 31.4 pg (25.7-33.7); MCHC 34.2 g/dl (32.0-35.9); MEAN CELL VOLUME 91.8 fl (80-96); MEAN PLT VOLUME 9.1 fl (7.5-11.1); PLATELET COUNT 81 10^3/uL (134-434); RDW 15.7 % (11.9-15.9); WHITE BLOOD COUNT 2.3 K/mm3 (4.0-10.0)
[2023-02-02 08:15] LABS: CHLORIDE 96 mmol/L (98-107); POTASSIUM 5.1 mmol/L (3.5-5.1); SODIUM 133 mmol/L (136-145)
[2023-02-02 08:16] LABS: CALCIUM 7.3 mg/dL (8.5-10.1)
[2023-02-02 08:17] LABS: ANION GAP 11 MMOL/L (8-16); BLOOD UREA NITROGEN 82.7 mg/dL (7-18); CO2 26 mmol/L (21-32); GLUCOSE,RANDOM 76 mg/dL (74-106)
[2023-02-02 09:09] LABS: ANISOCYTOSIS 0; HELMET CELLS 0; HOWELL-JOLLY BODIES 0; MACROCYTOSIS 0; OVALOCYTE 0; ROULEAU 0; SICKELED CELLS 0; TARGET CELLS 0; TEAR DROP CELLS 0; TOXIC GRANULATION 0
[2023-02-02 09:17] VITALS: RESP 18
[2023-02-02] MEDS ORDERED: PATIENT'S OWN MEDICATION (NON-FORMULARY) (Doravirine [Pifeltro] 100 MG Tablet) PO SCH (10:00)
[2023-02-02] MEDS ORDERED: FAMOTIDINE 20 MG TABLET PO SCH (10:00)
[2023-02-02] MEDS ORDERED: methaDONE HCL 40 MG DISPERSABLE TABLET PO SCH (10:00)
[2023-02-02] MEDS ORDERED: TAMSULOSIN HCL 0.4 MG CAP PO SCH (10:00)
[2023-02-02] MEDS: amLODIPine BESYLATE 10 MG TABLET (FP) PO SCH ×2 (11:18→12:33)
[2023-02-02] MEDS: HEPARIN NA (PORCINE) 5,000 UNITS/ML 1ML VIAL SQ SCH ×2 (11:18→12:33)
[2023-02-02] MEDS: FENOFIBRIC ACID 135 MG CAP PO SCH ×2 (11:18→12:33)
[2023-02-02] MEDS: TAMSULOSIN HCL 0.4 MG CAP PO SCH ×2 (11:18→12:33)
[2023-02-02] MEDS: DOLUTEGRAVIR SODIUM 50 MG TABLET (NON-FORMULARY) PO SCH ×2 (11:18→12:33)
[2023-02-02] MEDS: FAMOTIDINE 10 MG TABLET PO SCH ×2 (11:18→12:33)
[2023-02-02] MEDS: ALLOPURINOL 100 MG TABLET (FP) PO SCH ×2 (11:18→12:33)
[2023-02-02] MEDS ORDERED: CALCIUM ACETATE 667 MG CAPSULE (FP) PO SCH (12:30)
[2023-02-02 14:22] VITALS: BP 109/49; PULSE 60; TEMP 98
== END 2023-02-02 14:52 | disposition home or self-care (01) ==
LOC: JER 09:38 → JERBED 10:00 → J8W 15:11
PROVIDERS: ADMIT Internal Medicine; ATTEND Nurse Practitioner Acute Care
PROC: 3E033NZ Introduction of Analgesics, Hypnotics, Sedatives into Peripheral Vein, Percutaneous Approach (ICD-10-PCS; principal; 2023-02-01)
PROC: 3E033GC Introduction of Other Therapeutic Substance into Peripheral Vein, Percutaneous Approach (ICD-10-PCS; 2023-02-01)
PROC: 3E023GC Introduction of Other Therapeutic Substance into Muscle, Percutaneous Approach (ICD-10-PCS; 2023-02-01)
PROC: 3E033GC Introduction of Other Therapeutic Substance into Peripheral Vein, Percutaneous Approach (ICD-10-PCS; 2023-02-01)
PROC: 3E0337Z Introduction of Electrolytic and Water Balance Substance into Peripheral Vein, Percutaneous Approach (ICD-10-PCS; 2023-02-01)
DX: I12.0 Hypertensive chronic kidney disease with stage 5 chronic kidney disease or end stage renal disease (principal); N18.6 End stage renal disease; Z99.2 Dependence on renal dialysis; E78.5 Hyperlipidemia, unspecified; B20 Human immunodeficiency virus [HIV] disease; Z87.891 Personal history of nicotine dependence; R10.9 Unspecified abdominal pain
CPT/HCPCS: 0241U-QW; 36415; 74177-TC; 80048; 80053; 83605; 83690; 83735; 84100; 84484; 85025; 85610; 85730; 86803; 86850; 86900; 86901; 87340; 87522; 93005; 93010; 96361; 96365; 96372; 96375; 99285-25; G0378; J1644; Q5106

== ENCOUNTER 2023-02-05 15:55 | Emergency (ER) | payer OTHER ==
[2023-02-05 16:19] VITALS: BP 111/68; PULSE 82; RESP 17; TEMP 98.8; BMI 18.9
[2023-02-05] MEDS ORDERED: ACETAMINOPHEN 1000 MG/100 ML BAG IVPB ONE (17:07)
[2023-02-05] MEDS ORDERED: ACETAMINOPHEN INJECTION 100 ML IVPB ONE (17:12)
[2023-02-05 17:37] LABS: BASO % 0.4 % (0-2.0); EOS % 0.7 % (0-4.5); HEMATOCRIT 28.7 % (35.4-49); HEMOGLOBIN 9.6 GM/dL (11.7-16.9); LYMPH % 22.6 % (8-40); MCH 30.8 pg (25.7-33.7); MCHC 33.6 g/dl (32.0-35.9); MEAN CELL VOLUME 91.5 fl (80-96); MEAN PLT VOLUME 8.3 fl (7.5-11.1); MONO % 17.3 % (3.8-10.2); PLATELET COUNT 100 10^3/uL (134-434); RBC 3.13 M/mm3 (4.00-5.60); RDW 16.1 % (11.9-15.9); WHITE BLOOD COUNT 2.4 K/mm3 (4.0-10.0)
[2023-02-05 18:00] LABS: POTASSIUM 4.3 mmol/L (3.5-5.1)
[2023-02-05 18:02] LABS: CALCIUM 8.1 mg/dL (8.5-10.1)
[2023-02-05 18:03] LABS: ALBUMIN 2.6 g/dl (3.4-5.0)
[2023-02-05 18:06] LABS: CREATININE 6.6 mg/dL (0.55-1.3)
[2023-02-05 18:07] LABS: BILIRUBIN,TOTAL 0.5 mg/dL (0.2-1); TOT PROT 6.9 g/dl (6.4-8.2)
[2023-02-05 18:21] LABS: BLOOD UREA NITROGEN 26.8 mg/dL (7-18)
== END 2023-02-05 18:57 | disposition home or self-care (01) ==
LOC: JER 15:55
PROC: 3E033NZ Introduction of Analgesics, Hypnotics, Sedatives into Peripheral Vein, Percutaneous Approach (ICD-10-PCS; principal; 2023-02-05)
DX: R10.9 Unspecified abdominal pain (principal); R11.0 Nausea
CPT/HCPCS: 36415; 80053; 83605; 85025; 93005; 93010; 99284-25

== ENCOUNTER 2023-05-03 17:16 | Inpatient (IN) | payer OTHER, BC ==
[2023-05-03] MEDS ORDERED: ACETAMINOPHEN 1000 MG/100 ML BAG IVPB ONE (18:58)
[2023-05-03] MEDS ORDERED: ONDANSETRON 4 MG/2 ML VIAL IVPUSH ONE (18:59)
[2023-05-03] MEDS ORDERED: MAG HYDROX/AL HYDROX/SIMETH 30 ML UNIT-DOSE CUP PO ONE (18:59)
[2023-05-03 19:24] LABS: BASO % 0.5 % (0-2.0); EOS % 0.6 % (0-4.5); HEMOGLOBIN 9.6 GM/dL (11.7-16.9); LYMPH % 41.8 % (8-40); MCH 31.2 pg (25.7-33.7); MCHC 33.1 g/dl (32.0-35.9); MEAN CELL VOLUME 94.4 fl (80-96); MONO % 12.8 % (3.8-10.2); NEUT % 44.3 % (42.8-82.8); PLATELET COUNT 96 10^3/uL (134-434); RBC 3.08 M/mm3 (4.00-5.60); RDW 16.9 % (11.9-15.9); WHITE BLOOD COUNT 2.2 K/mm3 (4.0-10.0)
[2023-05-03 19:38] LABS: CALCIUM 7.6 mg/dL (8.5-10.1)
[2023-05-03 19:39] LABS: ALBUMIN 2.6 g/dl (3.4-5.0)
[2023-05-03 19:42] LABS: CREATININE 6.6 mg/dL (0.55-1.3)
[2023-05-03 19:43] LABS: TOT PROT 7.5 g/dl (6.4-8.2)
[2023-05-03 19:44] LABS: BILIRUBIN,TOTAL 0.6 mg/dL (0.2-1)
[2023-05-03 19:47] LABS: BLOOD UREA NITROGEN 26.5 mg/dL (7-18)
[2023-05-03] MEDS ORDERED: ACETAMINOPHEN INJECTION 100 ML IVPB ONE (19:50)
[2023-05-03] MEDS ORDERED: ONDANSETRON 4 MG/2 ML VIAL ONE (19:51)
[2023-05-03] MEDS ORDERED: MAG HYDROX/AL HYDROX/SIMETH 30 ML UNIT-DOSE CUP ONE (19:51)
[2023-05-03] MEDS ORDERED: FAMOTIDINE 20 MG/50 ML IVPB 20 MG/50 ML MG IVPB SCH (22:00)
[2023-05-03] MEDS ORDERED: ALBUTEROL SO4 2.5/IPRATROPIUM 0.5 INH SOL 3 ML VIAL.NEB. NEB ONE (23:42)
[2023-05-04] MEDS ORDERED: HEPARIN NA (PORCINE) 5,000 UNITS/ML 1ML VIAL SQ ONE (01:05)
[2023-05-04] MEDS ORDERED: HEPARIN NA (PORCINE) 5,000 UNITS/ML 1ML VIAL ONE (01:19)
[2023-05-04] MEDS: HEPARIN NA (PORCINE) 5,000 UNITS/ML 1ML VIAL SQ SCH ×3 (06:03→22:18)
[2023-05-04 06:30] LABS: BASO % 0.4 % (0-2.0); EOS % 1.1 % (0-4.5); HEMATOCRIT 31.8 % (35.4-49); HEMOGLOBIN 10.4 GM/dL (11.7-16.9); LYMPH % 58.9 % (8-40); MCH 31.1 pg (25.7-33.7); MCHC 32.6 g/dl (32.0-35.9); MEAN CELL VOLUME 95.2 fl (80-96); MEAN PLT VOLUME 9.5 fl (7.5-11.1); MONO % 9.1 % (3.8-10.2); NEUT % 30.5 % (42.8-82.8); PLATELET COUNT 89 10^3/uL (134-434); RBC 3.34 M/mm3 (4.00-5.60); RDW 16.8 % (11.9-15.9); WHITE BLOOD COUNT 2.5 K/mm3 (4.0-10.0)
[2023-05-04 06:48] LABS: CHLORIDE 98 mmol/L (98-107); POTASSIUM 4.1 mmol/L (3.5-5.1); SODIUM 136 mmol/L (136-145)
[2023-05-04 06:50] LABS: CALCIUM 7.6 mg/dL (8.5-10.1)
[2023-05-04 06:51] LABS: ALBUMIN 2.6 g/dl (3.4-5.0); ANION GAP 8 MMOL/L (8-16); CO2 30 mmol/L (21-32); GLUCOSE,RANDOM 57 mg/dL (74-106); MAGNESIUM 2.1 mg/dL (1.8-2.4)
[2023-05-04 06:54] LABS: IRON SERUM 79 ug/dL (50-175); SGOT/AST 25 U/L (15-37); SGPT/ALT 12 U/L (13-61); TOTAL IRON BINDING CAPACITY 214 ug/dL (250-450)
[2023-05-04 06:55] LABS: BILIRUBIN,TOTAL 0.7 mg/dL (0.2-1); TOT PROT 7.6 g/dl (6.4-8.2)
[2023-05-04 06:56] LABS: ALK PHOS 68 U/L (45-117)
[2023-05-04 07:04] LABS: CREATININE 7.7 mg/dL (0.55-1.3)
[2023-05-04 07:55] VITALS: BMI 19.3
[2023-05-04] MEDS: CALCIUM ACETATE 667 MG CAPSULE (FP) PO SCH ×3 (09:45→17:20)
[2023-05-04] MEDS: TAMSULOSIN HCL 0.4 MG CAP PO SCH (09:45)
[2023-05-04] MEDS: amLODIPine BESYLATE 10 MG TABLET (FP) PO SCH (09:45)
[2023-05-04] MEDS: FAMOTIDINE 20 MG TABLET PO SCH (09:46)
[2023-05-04] MEDS: ALLOPURINOL 100 MG TABLET (FP) PO SCH (09:46)
[2023-05-04] MEDS ORDERED: SODIUM CHLORIDE 250 ML IV PRN (12:28)
[2023-05-04] MEDS: DOLUTEGRAVIR SODIUM 50 MG TABLET (NON-FORMULARY) PO SCH (16:46)
[2023-05-04] MEDS: DORAVIRINE 100 MG PO SCH (19:21)
[2023-05-05] MEDS ORDERED: methaDONE 40 MG, methaDONE 20 MG PO ONE (06:00)
[2023-05-05] MEDS: HEPARIN NA (PORCINE) 5,000 UNITS/ML 1ML VIAL SQ SCH ×3 (06:26→22:57)
[2023-05-05] MEDS ORDERED: EPOETIN ALFA-EPBX 4,000 UNIT/ML VIAL IVPUSH ONE (07:30)
[2023-05-05] MEDS: CALCIUM ACETATE 667 MG CAPSULE (FP) PO SCH ×3 (08:31→18:41)
[2023-05-05] MEDS: TAMSULOSIN HCL 0.4 MG CAP PO SCH (08:31)
[2023-05-05] MEDS ORDERED: methaDONE HCL 10 MG TABLET (FOR DETOX USE ONLY) PO ONE (09:00)
[2023-05-05] MEDS: DORAVIRINE 100 MG PO SCH (09:29)
[2023-05-05] MEDS: amLODIPine BESYLATE 10 MG TABLET (FP) PO SCH (09:29)
[2023-05-05] MEDS: ALLOPURINOL 100 MG TABLET (FP) PO SCH (09:29)
[2023-05-05] MEDS: DOLUTEGRAVIR SODIUM 50 MG TABLET (NON-FORMULARY) PO SCH (09:43)
[2023-05-05] MEDS ORDERED: methaDONE HCL 10 MG TABLET (FOR DETOX USE ONLY) PO SCH (10:00)
[2023-05-05] MEDS: methaDONE 40 MG, methaDONE 20 MG PO SCH (10:30)
[2023-05-05 10:40] LABS: HEMOGLOBIN 9.1 GM/dL (11.7-16.9); MCH 31.1 pg (25.7-33.7); MCHC 32.7 g/dl (32.0-35.9); MEAN CELL VOLUME 95.3 fl (80-96); MEAN PLT VOLUME 9.6 fl (7.5-11.1); PLATELET COUNT 81 10^3/uL (134-434); RBC 2.93 M/mm3 (4.00-5.60); RDW 16.8 % (11.9-15.9)
[2023-05-05 10:41] LABS: AMYLASE 601 U/L (25-115); LIPASE 389 U/L (73-393)
[2023-05-05 10:45] LABS: LDH 179 U/L (87-246)
[2023-05-05 10:47] LABS: WHITE BLOOD COUNT 1.9 K/mm3 (4.0-10.0)
[2023-05-05 11:08] LABS: ANISOCYTOSIS 1+; MACROCYTOSIS 0
[2023-05-05 13:26] LABS: CHLORIDE 99 mmol/L (98-107); SODIUM 136 mmol/L (136-145)
[2023-05-05 13:28] LABS: ALBUMIN 2.3 g/dl (3.4-5.0); ANION GAP 9 MMOL/L (8-16); CALCIUM 7.3 mg/dL (8.5-10.1); CO2 27 mmol/L (21-32)
[2023-05-05 13:29] LABS: GLUCOSE,RANDOM 98 mg/dL (74-106)
[2023-05-05 13:32] LABS: SGOT/AST 23 U/L (15-37); SGPT/ALT 10 U/L (13-61)
[2023-05-05 13:33] LABS: BILIRUBIN,TOTAL 0.4 mg/dL (0.2-1)
[2023-05-05 13:34] LABS: ALK PHOS 89 U/L (45-117)
[2023-05-05 13:42] LABS: CREATININE 10.2 mg/dL (0.55-1.3)
[2023-05-05] MEDS: FAMOTIDINE 20 MG TABLET PO SCH (15:00)
[2023-05-05 18:34] LABS: URINE AMPHETAMINES NEGATIVE (NEGATIVE); URINE BENZODIAZEPINES NEGATIVE (NEGATIVE)
[2023-05-05 18:35] LABS: COCAINE, UR NEGATIVE (NEGATIVE); OPIATES, URI NEGATIVE (NEGATIVE); PHENCYCLIDINE,URINE NEGATIVE (NEGATIVE); URINE BARBITURATES NEGATIVE (NEGATIVE)
[2023-05-05 18:36] LABS: METHADONE, UR POSITIVE (NEGATIVE)
[2023-05-06] MEDS: methaDONE 40 MG, methaDONE 20 MG PO SCH (06:33)
[2023-05-06] MEDS: HEPARIN NA (PORCINE) 5,000 UNITS/ML 1ML VIAL SQ SCH (06:35)
[2023-05-06] MEDS: TAMSULOSIN HCL 0.4 MG CAP PO SCH (08:23)
[2023-05-06] MEDS: CALCIUM ACETATE 667 MG CAPSULE (FP) PO SCH ×2 (08:23→12:15)
[2023-05-06] MEDS: ALLOPURINOL 100 MG TABLET (FP) PO SCH (09:14)
[2023-05-06] MEDS: DORAVIRINE 100 MG PO SCH (09:15)
[2023-05-06] MEDS: amLODIPine BESYLATE 10 MG TABLET (FP) PO SCH (09:15)
[2023-05-06] MEDS: DOLUTEGRAVIR SODIUM 50 MG TABLET (NON-FORMULARY) PO SCH (09:15)
[2023-05-06] MEDS ORDERED: methaDONE HCL 10 MG TABLET (FOR DETOX USE ONLY) PO SCH (10:00)
[2023-05-06 10:34] VITALS: BP 96/57; PULSE 70; RESP 16; TEMP 97.6
[2023-05-06] MEDS: FAMOTIDINE 20 MG TABLET PO SCH (11:48)
[2023-05-06 12:19] LABS: HEMATOCRIT 28.2 % (35.4-49); HEMOGLOBIN 9.2 GM/dL (11.7-16.9); MCH 31.2 pg (25.7-33.7); MCHC 32.8 g/dl (32.0-35.9); MEAN CELL VOLUME 95.2 fl (80-96); MEAN PLT VOLUME 9.4 fl (7.5-11.1); PLATELET COUNT 76 10^3/uL (134-434); RBC 2.96 M/mm3 (4.00-5.60); RDW 16.1 % (11.9-15.9)
[2023-05-06 12:23] LABS: WHITE BLOOD COUNT 1.9 K/mm3 (4.0-10.0)
[2023-05-06 13:00] LABS: ANISOCYTOSIS 1+; MACROCYTOSIS 0
== END 2023-05-06 14:18 | disposition home or self-care (01) | DRG 391 ==
LOC: JER 17:16 → JERBED 23:15 → OBSVTOIN 05-04 01:05 → J8W 05-04 07:28
PROVIDERS: ADMIT Internal Medicine; ATTEND Nurse Practitioner Family
PROC: 5A1D70Z Performance of Urinary Filtration, Intermittent, Less than 6 Hours Per Day (ICD-10-PCS; principal; 2023-05-05)
DX: R10.9 Unspecified abdominal pain (principal); N18.6 End stage renal disease; F11.20 Opioid dependence, uncomplicated; B20 Human immunodeficiency virus [HIV] disease; I12.0 Hypertensive chronic kidney disease with stage 5 chronic kidney disease or end stage renal disease; E78.5 Hyperlipidemia, unspecified; K21.9 Gastro-esophageal reflux disease without esophagitis; K22.2 Esophageal obstruction; Z99.2 Dependence on renal dialysis
CPT/HCPCS: 0241U-QW; 36415; 71045-TC-FY; 74174-TC; 74177-TC; 76705-TC; 80053; 80307; 82105; 82150; 82728; 82784; 83540; 83550; 83605; 83615; 83690; 83735; 84100; 84155; 84165; 84484; 85025; 85045; 86140; 86334; 86359; 86360; 86704; 86803; 87340; 87517; 87522; 93005; 93010; 99284-25; 99285-25; G0378; J1644; Q5106; Q9967

== ENCOUNTER 2023-09-07 19:20 | Emergency (ER) | payer OTHER, BC ==
[2023-09-07 20:17] VITALS: BP 131/67; PULSE 92; RESP 18; TEMP 100.7; BMI 18.6
[2023-09-07] MEDS ORDERED: ONDANSETRON 4 MG/2 ML VIAL IVPUSH ONE ×2 (20:31→23:50)
[2023-09-07] MEDS ORDERED: ACETAMINOPHEN 1000 MG/100 ML BAG IVPB ONE (20:31)
[2023-09-07] MEDS ORDERED: ACETAMINOPHEN INJECTION 100 ML IVPB ONE (20:54)
[2023-09-07] MEDS ORDERED: ONDANSETRON 4 MG/2 ML VIAL ONE ×2 (20:54→23:52)
[2023-09-07 21:44] LABS: BASO % 0.3 % (0-2.0); EOS % 0.5 % (0-4.5); HEMATOCRIT 33.3 % (35.4-49); LYMPH % 18.7 % (8-40); MCH 30.6 pg (25.7-33.7); MCHC 32.9 g/dl (32.0-35.9); MEAN CELL VOLUME 92.8 fl (80-96); MEAN PLT VOLUME 9.6 fl (7.5-11.1); MONO % 10.1 % (3.8-10.2); NEUT % 70.4 % (42.8-82.8); PLATELET COUNT 117 10^3/uL (134-434); RBC 3.58 M/mm3 (4.00-5.60); RDW 17.3 % (11.9-15.9); WHITE BLOOD COUNT 3.4 K/mm3 (4.0-10.0)
[2023-09-07 21:51] LABS: CHLORIDE 96 mmol/L (98-107); SODIUM 131 mmol/L (136-145)
[2023-09-07 21:54] LABS: ALBUMIN 2.6 g/dl (3.4-5.0); BLOOD UREA NITROGEN 71.3 mg/dL (7-18); CALCIUM 7.9 mg/dL (8.5-10.1); CO2 25 mmol/L (21-32); GLUCOSE,RANDOM 98 mg/dL (74-106); LIPASE 450 U/L (73-393)
[2023-09-07 21:57] LABS: SGOT/AST 73 U/L (15-37)
[2023-09-07 21:59] LABS: BILIRUBIN,TOTAL 0.4 mg/dL (0.2-1)
[2023-09-07 22:00] LABS: ALK PHOS 93 U/L (45-117)
[2023-09-07 22:04] LABS: ANION GAP 10 mmol/L (4-13); CREATININE 11.2 mg/dL (0.55-1.3); POTASSIUM 8.4 mmol/L (3.5-5.1); SGPT/ALT 23 U/L (13-61); VENOUS BASE EXCESS -0.7 mmol/L (-2-2); VENOUS PCO2 49.1 mmHg (38-52); VENOUS PH 7.333 (7.310-7.410)
[2023-09-08 00:07] LABS: INR 1.31 (0.83-1.09); PROTHROMBIN TIME (PATIENT) 15.1 SEC (9.7-13.0)
[2023-09-08 00:46] LABS: CHLORIDE 100 mmol/L (98-107); POTASSIUM 5.7 mmol/L (3.5-5.1); SODIUM 133 mmol/L (136-145)
[2023-09-08 00:48] LABS: ANION GAP 8 mmol/L (4-13); CALCIUM 8.2 mg/dL (8.5-10.1); CO2 26 mmol/L (21-32); GLUCOSE,RANDOM 102 mg/dL (74-106); MAGNESIUM 2.1 mg/dL (1.8-2.4)
[2023-09-08 00:49] LABS: BLOOD UREA NITROGEN 75.4 mg/dL (7-18)
[2023-09-08 00:52] LABS: PHOSPHOROUS 4.2 mg/dL (2.5-4.9)
[2023-09-08] MEDS ORDERED: SODIUM ZIRCONIUM CYCLOSILICATE (LOKELMA) 5 GM PACKET PO ONE (00:52)
[2023-09-08 01:00] LABS: CREATININE 10.7 mg/dL (0.55-1.3)
[2023-09-08] MEDS ORDERED: SODIUM ZIRCONIUM CYCLOSILICATE (LOKELMA) 10 GM PACKET ONE (01:29)
== END 2023-09-08 01:49 | disposition home or self-care (01) ==
LOC: JER 19:20
PROC: 3E033NZ Introduction of Analgesics, Hypnotics, Sedatives into Peripheral Vein, Percutaneous Approach (ICD-10-PCS; principal; 2023-09-07)
PROC: 3E033GC Introduction of Other Therapeutic Substance into Peripheral Vein, Percutaneous Approach (ICD-10-PCS; 2023-09-07)
PROC: 3E033GC Introduction of Other Therapeutic Substance into Peripheral Vein, Percutaneous Approach (ICD-10-PCS; 2023-09-07)
DX: R50.9 Fever, unspecified (principal); J02.9 Acute pharyngitis, unspecified; R10.31 Right lower quadrant pain; J10.1 Influenza due to other identified influenza virus with other respiratory manifestations; E87.5 Hyperkalemia; I12.0 Hypertensive chronic kidney disease with stage 5 chronic kidney disease or end stage renal disease; N18.6 End stage renal disease; R10.13 Epigastric pain; R11.0 Nausea; R06.02 Shortness of breath; J39.2 Other diseases of pharynx; Z99.2 Dependence on renal dialysis; Z20.822 Contact with and (suspected) exposure to COVID-19
CPT/HCPCS: 0241U-QW; 36415; 71045-TC-FY; 74176-TC; 80048; 80053; 82550; 82553; 82803; 83605; 83690; 83735; 84100; 84484; 85025; 85610; 85730; 87040; 87651; 93005; 93010; 99285-25

== ENCOUNTER 2024-01-28 13:49 | Emergency (ER) | payer OTHER, BC ==
[2024-01-28 14:12] VITALS: BP 136/74; PULSE 72; RESP 18; TEMP 98.3; BMI 20.3
[2024-01-28 15:09] LABS: HEMATOCRIT 27.2 % (35.4-49); HEMOGLOBIN 9.3 GM/dL (11.7-16.9); MCH 31.5 pg (25.7-33.7); MEAN CELL VOLUME 92.7 fl (80-96); MEAN PLT VOLUME 9.3 fl (7.5-11.1); PLATELET COUNT 106 10^3/uL (134-434); RBC 2.94 M/mm3 (4.00-5.60); RDW 16.1 % (11.9-15.9); WHITE BLOOD COUNT 2.6 K/mm3 (4.0-10.0)
[2024-01-28 15:19] LABS: POTASSIUM 5.5 mmol/L (3.5-5.1)
[2024-01-28 15:21] LABS: BLOOD UREA NITROGEN 33.6 mg/dL (7-18); CALCIUM 8.3 mg/dL (8.5-10.1)
[2024-01-28 15:22] LABS: ALBUMIN 2.3 g/dl (3.4-5.0); INR 1.21 (0.83-1.09); PROTHROMBIN TIME (PATIENT) 13.6 SEC (9.7-13.0)
[2024-01-28 15:24] LABS: PHOSPHOROUS 3.4 mg/dL (2.5-4.9)
[2024-01-28 15:25] LABS: ACTIVATED PTT 31.5 SECONDS (25.2-36.5); CREATININE 6.4 mg/dL (0.55-1.3)
[2024-01-28 15:26] LABS: BILIRUBIN,TOTAL 0.7 mg/dL (0.2-1); TOT PROT 7.6 g/dl (6.4-8.2)
[2024-01-28] MEDS ORDERED: ACETAMINOPHEN INJECTION 100 ML IVPB ONE (15:28)
[2024-01-28] MEDS: FAMOTIDINE 20 MG/50 ML IVPB 20 MG/50 ML MG IVPB ONE (15:30)
[2024-01-28] MEDS: ACETAMINOPHEN 1000 MG/100 ML BAG IVPB ONE (15:32)
[2024-01-28 15:34] LABS: ANISOCYTOSIS 1+; MACROCYTOSIS 0
[2024-01-28] MEDS ORDERED: FAMOTIDINE 10 MG/ML VIAL IVPB ONE (16:25)
[2024-01-28 17:21] LABS: POTASSIUM 4.7 mmol/L (3.5-5.1)
[2024-01-28 17:22] LABS: BLOOD UREA NITROGEN 33.6 mg/dL (7-18); CALCIUM 7.8 mg/dL (8.5-10.1)
[2024-01-28 17:26] LABS: CREATININE 6.3 mg/dL (0.55-1.3)
[2024-01-28] MEDS ORDERED: ACETAMINOPHEN 325 MG TABLET (FP) ONE (19:40)
[2024-01-28] MEDS ORDERED: MAG HYDROX/AL HYDROX/SIMETH 30 ML UNIT-DOSE CUP ONE (19:43)
[2024-01-28] MEDS ORDERED: ONDANSETRON 4 MG/2 ML VIAL ONE (19:43)
[2024-01-28] MEDS: MAG HYDROX/AL HYDROX/SIMETH 30 ML UNIT-DOSE CUP PO ONE (19:59)
[2024-01-28] MEDS: ONDANSETRON 4 MG/2 ML VIAL IVPUSH ONE (19:59)
[2024-01-28] MEDS: ACETAMINOPHEN 325 MG TABLET (FP) PO ONE (20:03)
== END 2024-01-28 20:56 | disposition home or self-care (01) ==
LOC: JER 13:49
PROC: 3E033GC Introduction of Other Therapeutic Substance into Peripheral Vein, Percutaneous Approach (ICD-10-PCS; principal; 2024-01-28)
PROC: 3E033GC Introduction of Other Therapeutic Substance into Peripheral Vein, Percutaneous Approach (ICD-10-PCS; 2024-01-28)
PROC: 3E033NZ Introduction of Analgesics, Hypnotics, Sedatives into Peripheral Vein, Percutaneous Approach (ICD-10-PCS; 2024-01-28)
DX: G89.29 Other chronic pain (principal); R10.33 Periumbilical pain; R55 Syncope and collapse; R19.7 Diarrhea, unspecified
CPT/HCPCS: 36415; 74176-TC; 80048; 80053; 82272; 82550; 83690; 83735; 84100; 84484; 85025; 85610; 85730; 86850; 86900; 86901; 93005; 93010; 96365; 96375; 99285-25; J0131

== ENCOUNTER 2024-01-31 16:59 | Observation (INO) | payer OTHER ==
[2024-01-31 17:44] LABS: HEMATOCRIT 27.6 % (35.4-49); HEMOGLOBIN 9.4 GM/dL (11.7-16.9); MCH 31.8 pg (25.7-33.7); MCHC 34.1 g/dl (32.0-35.9); MEAN CELL VOLUME 93.2 fl (80-96); PLATELET COUNT 109 10^3/uL (134-434); RBC 2.96 M/mm3 (4.00-5.60); RDW 15.9 % (11.9-15.9); WHITE BLOOD COUNT 3.2 K/mm3 (4.0-10.0)
[2024-01-31] MEDS ORDERED: ONDANSETRON 4 MG/2 ML VIAL ONE ×2 (17:48→18:40)
[2024-01-31] MEDS ORDERED: FAMOTIDINE 20 MG/50 ML IVPB 20 MG/50 ML MG IVPB ONE (17:48)
[2024-01-31] MEDS ORDERED: MAG HYDROX/AL HYDROX/SIMETH 30 ML UNIT-DOSE CUP ONE (17:48)
[2024-01-31] MEDS: FAMOTIDINE 20 MG/50 ML IVPB 20 MG/50 ML MG IVPB ONE (17:53)
[2024-01-31] MEDS: ONDANSETRON 4 MG/2 ML VIAL IVPUSH ONE ×2 (17:53→18:43)
[2024-01-31] MEDS: MAG HYDROX/AL HYDROX/SIMETH 30 ML UNIT-DOSE CUP PO ONE (17:53)
[2024-01-31 17:54] LABS: INR 1.25 (0.83-1.09); PROTHROMBIN TIME (PATIENT) 14.3 SEC (9.7-13.0)
[2024-01-31 17:56] LABS: ACTIVATED PTT 36.4 SECONDS (25.2-36.5)
[2024-01-31 17:59] LABS: POTASSIUM 4.8 mmol/L (3.5-5.1)
[2024-01-31 18:02] LABS: ALBUMIN 2.3 g/dl (3.4-5.0); BLOOD UREA NITROGEN 29.5 mg/dL (7-18); CALCIUM 7.9 mg/dL (8.5-10.1)
[2024-01-31 18:07] LABS: BILIRUBIN,TOTAL 0.6 mg/dL (0.2-1); TOT PROT 7.4 g/dl (6.4-8.2)
[2024-01-31] MEDS ORDERED: METOCLOPRAMIDE HCL INJECTION 10 MG/2 ML VIAL ONE (18:39)
[2024-01-31 18:42] LABS: ANISOCYTOSIS 1+; MACROCYTOSIS 0; OVALOCYTE 1+; TARGET CELLS 1+
[2024-01-31] MEDS: METOCLOPRAMIDE HCL INJECTION 10 MG/2 ML VIAL IVPUSH ONE (18:43)
[2024-01-31] MEDS ORDERED: methaDONE HCL 40 MG DISPERSABLE TABLET ONE (21:18)
[2024-01-31] MEDS ORDERED: methaDONE HCL 10 MG TABLET ONE (21:18)
[2024-01-31] MEDS: methaDONE 40 MG, methaDONE 20 MG PO ONE (21:21)
[2024-01-31] MEDS ORDERED: ACETAMINOPHEN 500 MG TABLET (FP) PO ONE (22:11)
[2024-02-01 00:35] VITALS: BMI 20.9
[2024-02-01 09:44] LABS: BASO % 0.7 % (0-2.0); HEMOGLOBIN 9.1 GM/dL (11.7-16.9); LYMPH % 40.8 % (8-40); MCH 31.9 pg (25.7-33.7); MCHC 33.9 g/dl (32.0-35.9); MEAN CELL VOLUME 94.2 fl (80-96); MEAN PLT VOLUME 8.9 fl (7.5-11.1); MONO % 11.2 % (3.8-10.2); NEUT % 46.3 % (42.8-82.8); PLATELET COUNT 97 10^3/uL (134-434); RBC 2.86 M/mm3 (4.00-5.60); RDW 16.3 % (11.9-15.9); WHITE BLOOD COUNT 3.1 K/mm3 (4.0-10.0)
[2024-02-01] MEDS ORDERED: methaDONE HCL 40 MG DISPERSABLE TABLET PO SCH (10:00)
[2024-02-01] MEDS ORDERED: PATIENT'S OWN MEDICATION (NON-FORMULARY) (Doravirine 100 MG Tablet) PO SCH (10:00)
[2024-02-01] MEDS ORDERED: FAMOTIDINE 20 MG TABLET PO SCH (10:00)
[2024-02-01 10:07] LABS: POTASSIUM 4.7 mmol/L (3.5-5.1)
[2024-02-01 10:11] LABS: ALBUMIN 2.3 g/dl (3.4-5.0); MAGNESIUM 2.2 mg/dL (1.8-2.4)
[2024-02-01 10:12] LABS: BLOOD UREA NITROGEN 37.2 mg/dL (7-18)
[2024-02-01 10:14] LABS: PHOSPHOROUS 4.6 mg/dL (2.5-4.9)
[2024-02-01 10:20] LABS: BILIRUBIN,TOTAL 0.5 mg/dL (0.2-1); TOT PROT 7.1 g/dl (6.4-8.2)
[2024-02-01] MEDS: FENOFIBRIC ACID 135 MG CAP PO SCH (10:49)
[2024-02-01] MEDS: ALLOPURINOL 100 MG TABLET (FP) PO SCH (10:49)
[2024-02-01] MEDS: CALCIUM ACETATE 667 MG CAPSULE (FP) PO SCH (10:49)
[2024-02-01] MEDS: amLODIPine BESYLATE 10 MG TABLET (FP) PO SCH (10:49)
[2024-02-01] MEDS: POLYETHYLENE GLYCOL (HEALTHYLAX) 3350 17 GM PACKET PO SCH (10:50)
[2024-02-01] MEDS: TAMSULOSIN HCL 0.4 MG CAP PO SCH (10:50)
[2024-02-01 10:59] LABS: CREATININE 7.4 mg/dL (0.55-1.3)
[2024-02-01] MEDS: methaDONE 40 MG, methaDONE 20 MG PO SCH (11:28)
[2024-02-01] MEDS ORDERED: SODIUM CHLORIDE 250 ML IV PRN (13:06)
[2024-02-01] MEDS: DOLUTEGRAVIR SODIUM 50 MG TABLET (NON-FORMULARY) PO SCH (13:26)
[2024-02-01 15:37] VITALS: BP 141/92; PULSE 65; RESP 16; TEMP 97.7
[2024-02-02] MEDS ORDERED: EPOETIN ALFA-EPBX 10,000 UNIT/ML VIAL SQ ONE (13:06)
== END 2024-02-01 16:44 | disposition home or self-care (01) ==
LOC: JER 16:59 → JERBED 21:43 → UNDOADMOB 21:43 → INTOOBSV 21:43 → J5S 02-01 00:23 → JERBED 02-01 00:23 → J5S 02-01 09:33
PROVIDERS: ADMIT Internal Medicine; ATTEND Internal Medicine
PROC: 3E033GC Introduction of Other Therapeutic Substance into Peripheral Vein, Percutaneous Approach (ICD-10-PCS; principal; 2024-02-01)
DX: R10.84 Generalized abdominal pain (principal); B20 Human immunodeficiency virus [HIV] disease; N18.6 End stage renal disease; Z99.2 Dependence on renal dialysis; E78.5 Hyperlipidemia, unspecified; Z85.89 Personal history of malignant neoplasm of other organs and systems; F19.21 Other psychoactive substance dependence, in remission; Z72.0 Tobacco use; R19.7 Diarrhea, unspecified
CPT/HCPCS: 36415; 74174-TC; 80053; 83605; 83690; 83735; 84100; 84484; 85025; 85610; 85730; 86359; 86360; 93005; 93010; 93306-TC; 96365; 96375; 96376; 99285-25; G0378

== ENCOUNTER 2024-02-26 15:12 | Inpatient (IN) | payer OTHER ==
[2024-02-26] MEDS ORDERED: ONDANSETRON 4 MG/2 ML VIAL ONE ×2 (16:04→16:07)
[2024-02-26] MEDS ORDERED: ACETAMINOPHEN INJECTION 100 ML IVPB ONE (16:04)
[2024-02-26] MEDS ORDERED: FAMOTIDINE 20 MG/50 ML IVPB 20 MG/50 ML MG IVPB ONE (16:04)
[2024-02-26 16:09] LABS: BASO % 0.6 % (0-2.0); EOS % 0.4 % (0-4.5); HEMATOCRIT 31.9 % (35.4-49); HEMOGLOBIN 10.4 GM/dL (11.7-16.9); MCH 30.9 pg (25.7-33.7); MCHC 32.6 g/dl (32.0-35.9); MEAN CELL VOLUME 94.6 fl (80-96); MONO % 20.4 % (3.8-10.2); NEUT % 47.6 % (42.8-82.8); PLATELET COUNT 101 10^3/uL (134-434); RBC 3.38 M/mm3 (4.00-5.60); RDW 18.8 % (11.9-15.9); WHITE BLOOD COUNT 2.6 K/mm3 (4.0-10.0)
[2024-02-26] MEDS: ACETAMINOPHEN 1000 MG/100 ML BAG IVPB ONE (16:13)
[2024-02-26] MEDS: FAMOTIDINE 20 MG/50 ML IVPB 20 MG/50 ML MG IVPB ONE (16:13)
[2024-02-26] MEDS: SODIUM CHLORIDE 0.9% 500 ML INFUS.BAG IV ONE (16:13)
[2024-02-26] MEDS: ONDANSETRON 4 MG/2 ML VIAL IVPUSH ONE (16:13)
[2024-02-26 16:54] LABS: ANISOCYTOSIS 2+; CHLORIDE 99 mmol/L (98-107); MACROCYTOSIS 0; SODIUM 136 mmol/L (136-145); TARGET CELLS 1+
[2024-02-26 16:56] LABS: ANION GAP 7 mmol/L (4-13); BLOOD UREA NITROGEN 29.8 mg/dL (7-18); CALCIUM 8.1 mg/dL (8.5-10.1); CO2 29 mmol/L (21-32); GLUCOSE,RANDOM 97 mg/dL (74-106)
[2024-02-26 16:57] LABS: ALBUMIN 2.6 g/dl (3.4-5.0); MAGNESIUM 2.2 mg/dL (1.8-2.4)
[2024-02-26 16:59] LABS: PHOSPHOROUS 3.6 mg/dL (2.5-4.9); SGOT/AST 37 U/L (15-37); SGPT/ALT 11 U/L (13-61)
[2024-02-26 17:00] LABS: CREATININE 7.3 mg/dL (0.55-1.3)
[2024-02-26 17:01] LABS: BILIRUBIN,TOTAL 0.6 mg/dL (0.2-1); TOT PROT 8.1 g/dl (6.4-8.2)
[2024-02-26 17:02] LABS: ALK PHOS 83 U/L (45-117)
[2024-02-26 17:04] LABS: LACTIC ACID 3.5 mmol/L (0.4-2.0)
[2024-02-26] MEDS ORDERED: MORPHINE SULFATE 2 MG/ML SYRINGE ONE (19:01)
[2024-02-26] MEDS: morphine CARPU-JECT 2 MG/1 ML DISP.SYRIN IVPUSH ONE (19:05)
[2024-02-26] MEDS ORDERED: morphine SULFATE 4 MG/ML VIAL ONE (19:32)
[2024-02-26] MEDS: morphine CARPU-JECT 4 MG/1 ML DISP.SYRIN IVPUSH ONE (19:35)
[2024-02-26] MEDS ORDERED: ONDANSETRON 4 MG/2 ML VIAL IVPUSH PRN (20:51)
[2024-02-26] MEDS ORDERED: METOCLOPRAMIDE HCL INJECTION 10 MG/2 ML VIAL ONE (21:04)
[2024-02-26] MEDS: METOCLOPRAMIDE HCL INJECTION 10 MG/2 ML VIAL IVPB ONE (21:12)
[2024-02-27] MEDS: METOCLOPRAMIDE HCL INJECTION 10 MG/2 ML VIAL IVPUSH PRN (01:15)
[2024-02-27 04:44] VITALS: RESP 18
[2024-02-27 06:53] VITALS: BMI 19.5
[2024-02-27] MEDS: CALCIUM ACETATE 667 MG CAPSULE (FP) PO SCH (08:45)
[2024-02-27] MEDS: TAMSULOSIN HCL 0.4 MG CAP PO SCH (08:45)
[2024-02-27] MEDS: ALLOPURINOL 100 MG TABLET (FP) PO SCH (09:16)
[2024-02-27] MEDS: FENOFIBRIC ACID 135 MG CAP PO SCH (09:16)
[2024-02-27] MEDS: amLODIPine BESYLATE 10 MG TABLET (FP) PO SCH (09:16)
[2024-02-27] MEDS: FAMOTIDINE 20 MG TABLET PO SCH (09:16)
[2024-02-27 09:37] LABS: INR 1.16 (0.83-1.09); PROTHROMBIN TIME (PATIENT) 13.1 SEC (9.7-13.0)
[2024-02-27 09:38] LABS: HEMATOCRIT 31.7 % (35.4-49); HEMOGLOBIN 10.2 GM/dL (11.7-16.9); MCH 30.8 pg (25.7-33.7); MCHC 32.2 g/dl (32.0-35.9); MEAN CELL VOLUME 95.6 fl (80-96); MEAN PLT VOLUME 9.6 fl (7.5-11.1); PLATELET COUNT 89 10^3/uL (134-434); RBC 3.32 M/mm3 (4.00-5.60); RDW 18.2 % (11.9-15.9); WHITE BLOOD COUNT 2.4 K/mm3 (4.0-10.0)
[2024-02-27] MEDS: methaDONE 40 MG, methaDONE 20 MG PO ONE (09:54)
[2024-02-27 09:56] LABS: IRON SERUM 114 ug/dL (50-175); TOTAL IRON BINDING CAPACITY 231 ug/dL (250-450)
[2024-02-27] MEDS ORDERED: methaDONE HCL 40 MG DISPERSABLE TABLET PO SCH (10:00)
[2024-02-27] MEDS ORDERED: PATIENT'S OWN MEDICATION (NON-FORMULARY) (Doravirine 100 MG Tablet) PO SCH (10:00)
[2024-02-27] MEDS: SODIUM CHLORIDE 1,000 ML IV STA (10:05)
[2024-02-27 10:07] LABS: CHLORIDE 101 mmol/L (98-107); POTASSIUM 4.2 mmol/L (3.5-5.1); SODIUM 137 mmol/L (136-145)
[2024-02-27 10:11] LABS: ALBUMIN 2.6 g/dl (3.4-5.0); ANION GAP 10 mmol/L (4-13); CO2 26 mmol/L (21-32); GLUCOSE,RANDOM 57 mg/dL (74-106); MAGNESIUM 2.3 mg/dL (1.8-2.4)
[2024-02-27 10:14] LABS: PHOSPHOROUS 5.3 mg/dL (2.5-4.9); SGOT/AST 33 U/L (15-37); SGPT/ALT 13 U/L (13-61)
[2024-02-27 10:15] LABS: ALK PHOS 83 U/L (45-117)
[2024-02-27 10:16] LABS: BILIRUBIN,TOTAL 0.9 mg/dL (0.2-1); CREATININE 8.6 mg/dL (0.55-1.3); TOT PROT 8.3 g/dl (6.4-8.2)
[2024-02-27] MEDS: DOLUTEGRAVIR SODIUM 50 MG TABLET (NON-FORMULARY) PO SCH (10:30)
[2024-02-27] MEDS: TRIMETHOBENZAMIDE HCL 200MG/2ML INJ IM ONE (12:00)
[2024-02-27] MEDS: ACETAMINOPHEN 1000 MG/100 ML BAG IVPB ONE (21:46)
[2024-02-28] MEDS ORDERED: methaDONE 40 MG, methaDONE 20 MG PO ONE (08:44)
[2024-02-28 09:01] LABS: HEMATOCRIT 29.6 % (35.4-49); HEMOGLOBIN 9.8 GM/dL (11.7-16.9); MCH 31.1 pg (25.7-33.7); MEAN CELL VOLUME 94.4 fl (80-96); MEAN PLT VOLUME 8.6 fl (7.5-11.1); PLATELET COUNT 91 10^3/uL (134-434); RBC 3.14 M/mm3 (4.00-5.60); RDW 18.5 % (11.9-15.9); RETICULOCYTES 2.76 % (0.5-1.5); WHITE BLOOD COUNT 2.6 K/mm3 (4.0-10.0)
[2024-02-28] MEDS ORDERED: SODIUM CHLORIDE 250 ML IV PRN (09:05)
[2024-02-28 09:10] LABS: CHLORIDE 99 mmol/L (98-107); POTASSIUM 4.3 mmol/L (3.5-5.1); SODIUM 137 mmol/L (136-145)
[2024-02-28 09:13] LABS: ANION GAP 10 mmol/L (4-13); CO2 28 mmol/L (21-32)
[2024-02-28 09:14] LABS: GLUCOSE,RANDOM 63 mg/dL (74-106)
[2024-02-28 09:16] LABS: CALCIUM 7.8 mg/dL (8.5-10.1)
[2024-02-28 09:18] LABS: LDH 219 U/L (87-246)
[2024-02-28 09:23] LABS: IRON SERUM 68 ug/dL (50-175)
[2024-02-28 09:24] LABS: TOTAL IRON BINDING CAPACITY 266 ug/dL (250-450)
[2024-02-28 09:49] LABS: CREATININE 10.1 mg/dL (0.55-1.3)
[2024-02-28] MEDS: EPOETIN ALFA-EPBX 4,000 UNIT/ML VIAL IVPUSH ONE (11:45)
[2024-02-28] MEDS: methaDONE HCL 40 MG DISPERSABLE TABLET PO ONE (12:09)
[2024-02-28] MEDS: HEPARIN NA (PORCINE) 5,000 UNITS/ML 1ML VIAL IVPUSH ONE (12:34)
[2024-02-28 13:19] VITALS: BP 171/78; PULSE 96; TEMP 98
[2024-02-29 17:08] LABS: FREE KAPPA,SERUM 1007.3 mg/L (3.3-19.4); IG A QN SERUM. 398 mg/dL (61-437)
[2024-03-02 13:10] LABS: METHYLMALONIC ACID- 734 nmol/L (0-378)
== END 2024-02-28 17:40 | disposition home or self-care (01) | DRG 391 ==
LOC: JER 15:12 → JERBED 19:32 → J6S 02-27 00:03
PROVIDERS: ADMIT Internal Medicine; ATTEND Internal Medicine
PROC: 5A1D70Z Performance of Urinary Filtration, Intermittent, Less than 6 Hours Per Day (ICD-10-PCS; principal; 2024-02-28)
DX: K29.00 Acute gastritis without bleeding (principal); N18.6 End stage renal disease; I12.0 Hypertensive chronic kidney disease with stage 5 chronic kidney disease or end stage renal disease; B20 Human immunodeficiency virus [HIV] disease; R19.7 Diarrhea, unspecified; N20.0 Calculus of kidney; Z99.2 Dependence on renal dialysis; E78.5 Hyperlipidemia, unspecified; F17.210 Nicotine dependence, cigarettes, uncomplicated; K59.00 Constipation, unspecified; M41.9 Scoliosis, unspecified; I51.7 Cardiomegaly; K21.9 Gastro-esophageal reflux disease without esophagitis; K57.90 Diverticulosis of intestine, part unspecified, without perforation or abscess without bleeding; M19.90 Unspecified osteoarthritis, unspecified site
CPT/HCPCS: 36415; 71045-TC-FY; 74174-TC; 80048; 80053; 82607; 82668; 82728; 82747; 82784; 82962; 83540; 83550; 83605; 83615; 83690; 83735; 83883; 83921; 84100; 84155; 84165; 84443; 84484; 85014; 85025; 85027; 85045; 85610; 86480; 86704; 86705; 86803; 87340; 87517; 87522; 87635; 93005; 93010; 99285-25; J0131; J1644; Q5106

== ENCOUNTER 2024-05-30 04:31 | Day surgery (SDC) | payer OTHER ==
[2024-05-29 12:39] VITALS: BMI 22.1
[2024-05-30 11:10] VITALS: TEMP 98
[2024-05-30 11:18] VITALS: RESP 18
[2024-05-30 11:40] VITALS: PULSE 66
[2024-05-30 11:41] VITALS: BP 152/73
== END 2024-05-30 11:55 | disposition home or self-care (01) ==
LOC: JASU-ENDO 04:31
PROVIDERS: ATTEND Internal Medicine Gastroenterology
PROC: 0DJ08ZZ Inspection of Upper Intestinal Tract, Via Natural or Artificial Opening Endoscopic (ICD-10-PCS; 2024-05-30)
PROC: 0DBM8ZX Excision of Descending Colon, Via Natural or Artificial Opening Endoscopic, Diagnostic (ICD-10-PCS; principal; 2024-05-30 11:30)
DX: D12.4 Benign neoplasm of descending colon (principal); K22.2 Esophageal obstruction; K57.30 Diverticulosis of large intestine without perforation or abscess without bleeding; R63.4 Abnormal weight loss
CPT/HCPCS: 36415; 84132; 88305-TC